=== PATIENT | female | born 1940 | race Caucasian/White ===

== ENCOUNTER 2016-12-20 14:34 | Inpatient (IN) | payer MEDICARE ==
[~2016-12-20] VITALS: Ht 147.3 cm; Wt 35.4 kg
[2016-12-20] MEDS: Piperacillin-Tazo 3.375 Gm Inj 3.375 GM in Dextrose 5% Minibag Plus 50 ML IV SCH ×3 (02:30→18:30)
[~2016-12-20 14:34] MED LIST: AMLO2.5T2 PO; ATEN25TA7 PO
[2016-12-20 16:30] VITALS: BP 147/81; PULSE 81; RESP 16; O2SAT 95
[2016-12-20] MEDS ORDERED: LEVO50TA6 PO (16:42)
[2016-12-20] MEDS ORDERED: MONT10TA23 PO (16:42)
[2016-12-20] MEDS ORDERED: AMLO10TA3 PO (16:42)
[2016-12-20] MEDS ORDERED: RED600CA2 PO (16:42)
[2016-12-20] MEDS ORDERED: ASPI-973 PO (16:42)
[2016-12-20] MEDS ORDERED: LOSA100T29 PO (16:42)
[2016-12-20] MEDS ORDERED: Ondansetron 2 mg/mL 2 mL Inj IVPUSH PRN (16:50)
[2016-12-20] MEDS ORDERED: Polyethylene Glycol (PEG) 17 Gm Powder PO PRN (16:50)
[2016-12-20] MEDS ORDERED: Alum-Mag Hydrox-Simeth 30 mL Suspension PO PRN (16:50)
--- NOTE | 2016-12-20 16:57 | PCM.HPMED ---
Subjective Date of Service Dec 20, 2016 Primary Provider: Admitting Physician: Shankar Escobar MD Primary Care Physician: Dominique Bartlett Attending Physician: Shankar Escobar MD Admit Status: Direct Admit, Full Admit, Admit to Blue Team Chief Complaint: Progressively worsening dyspnea/5 month Generalized weakness/5 months History of Present Illness: Natalie is a 76-year-old lady with past medical history of gastric ulcer, hypertension, history of CVA, hypothyroidism,HLD, cervical spinal stenosis, diagnosed with COPD 9 months ago was sent from PCP office for progressively worsening dyspnea for suspected pneumonia. Patient states she had dyspnea which started about a year ago. She saw Dr. rothman 9 months ago and was diagnosed with COPD with PFT and started on inhalers. Patient states she did not have any improvement on inhalers.of note she quit smoking 35 years ago. Used to smoke 1-2 packs for 15 years. She continued to have dyspnea but Symptoms were stable. Dyspnea spelled progressively worsen since spring. She was seen in July . CXR 11/15/16 with pneumonia but underlying mass cannot be ruled out. Treated with doxycycline Dyspnea continued to worsen and was seen in October and then Nov 28. She was treated with doxycycline. Prednisone offered for possible COPD exacerbation but the patient declined. She reports"negligible"improvement with doxycycline She returned to PCP/clinic on December 09. Started on prednisone 20 mg by mouth daily. Chest x-ray ordered CXR 12/17 No significant interval change. Stable right pleural effusion and mid and lower right lung pulmonary opacities. Given persistence of findings recommended a chest CT with contrast. CT chest: Moderate right upper and severe right lower lobe pneumonia. Moderate right parapneumonic effusion. Prominent supraclavicular, right hilar, and mediastinal adenopathy, worrisome for underlying malignant process. admission requested for pneumonia, failed outpatient treatment and workup of lung mass. She was also started on Levaquin po few days ago but no improvement she also reports she has dysphagia since having a stroke 2 and half years ago Denies fever. She has cough long-standing for many years but no recent change. lost 5 pounds recently unintentionally Review of Systems: Comprehensive review of systems performed, pertinent positives and negatives included in history of present illness Allergies Coded Allergies: aspirin (Verified Adverse Reaction, Severe, Abdominal Pain, 08/19/13) hx of GI bleed s/p aspirin use requiring 4 units PRBCs. Do Not Give per Dr. August. Serotonin (Verified Adverse Reaction, Mild, causes excessive somnolence, ) Home Medications Amlodipine 10 mg daily Aspirin 81 mg by mouth daily levothyroxine 50 mcg daily Losartan 100 mg by mouth daily Montelukast 10 mg by mouth daily PMH history of large gastric ulcer , hypertension, history of CVA requiring TPA hypothyroidism,HLD, cervical spinal stenosis, diagnosed with COPD 9 months ago Surgical History None Family History Reviewed and unremarkable. Social History Hx Alcohol Use: No Hx Substance Use: No Hx Tobacco Use: No Exam Vital Signs Vital Sign - Last Date Time Temp Pulse Resp B/P Pulse Ox O2 Delivery O2 Flow Rate FiO2 12/20/16 16:30 36.4 81 16 147/81 95 Room Air Exam Gen. Cachectic patient, no respiratory distress HEENT: Head is normocephalic atraumatic, Pupils equal and reactive, extraocular movements intact, Lungs decreased air entry the right lower chest Heart regular rate and rhythm without murmurs gallops or rubs Abdomen soft nontender without hepatosplenomegaly Extremities pulses are present dorsalis pedis posterior tibialis and radial. tSkin is warm and dry there are no rashes, Psych alert and oriented to person place and time Neuro cranial nerves II through XII are grossly intact Lymph: There is no lymphadenopathy appreciated in the cervical supra infraclavicular regions : no hill Lab and Diagnostics X-Rays, CTs and MRIs PROCEDURE: X-RAY CHEST, TWO VIEWS ([id number]) INDICATIONS: PNEUMONIA,CHRONIC OBSTRUCTIVE PULMONARY DISEASE TECHNIQUE: 2 views of the chest were acquired. COMPARISON: [facility], CR, XR CHEST 2VW, 11/15/2016, 9:01. FINDINGS: Surgical changes and devices: None. Lungs and pleura: Stable small right pleural effusion with interstitial pulmonary opacities throughout the right mid and lower lung. Left lung is clear. Hyperinflation consistent with emphysema. Mediastinum: Mediastinal contours are normal. Heart size is normal. Bones and chest wall: No suspicious bony abnormalities. Soft tissues appear unremarkable. IMPRESSION: No significant interval change. Stable right pleural effusion and mid and lower right lung pulmonary opacities. Given persistence of findings recommended a chest CT with contrast. Dictated by: Adam Anderson M.D. on 12/17/2016 at 12:10 PROCEDURE: CT CHEST WITH CONTRAST ([id number]) INDICATIONS: PLEURAL EFFUSION ON RIGHT TECHNIQUE: After the administration of intravenous contrast, 5 mm thick sections acquired from the pulmonary apices to the posterior costophrenic angles. 7 mm thick coronal and sagittal MIP reformats were acquired. For radiation dose reduction , the following was used: automated exposure control, adjustment of mA and/or kV according to patient size. 5 COMPARISON: None. FINDINGS: Image quality: Excellent. Lungs and pleura: A moderate right pleural effusion is present. No pneumothorax. Central and peripheral airways are patent and normal in caliber. There is severe airspace opacification within the right lower lobe, especially involving the superior segment. There is moderate airspace opacification within the right upper lobe. There is moderate emphysema with apical predominance. Mediastinum: Heart size is normal. No pericardial effusion. 20 mm short axis right paratracheal adenopathy is present. 27 mm short axis precarinal adenopathy is present. 14 mm short axis and 27 mm short axis right hilar adenopathy is present. 25 mm short axis subcarinal adenopathy is present. Thoracic aorta and central pulmonary arteries are normal in size. There is moderate fluid filled distention of the upper esophagus, measuring 30 mm transverse, which contains fluid, as well as a dependent high density focus measuring 7 mm. No hiatal hernia. Bones and chest wall: No suspicious bony lesions. No vertebral body compression fractures. No axillary adenopathy. Bilateral supra-clavicular adenopathy is present, measuring 14 mm short axis on the right, as well as 15 mm short axis and 10 mm short axis on the left.. Thyroid gland is within normal limits. Abdomen: Visualized portions of the upper abdomen demonstrate an incompletely visualized multiloculated low-density focus within the right/left hepatic lobe junction anteriorly measuring at least 26 mm. IMPRESSION: 1. Moderate right upper and severe right lower lobe pneumonia. Moderate right parapneumonic effusion. 2. Prominent supraclavicular, right hilar, and mediastinal adenopathy, worrisome for underlying malignant process. 3. Upper esophageal distention with retained intraluminal material, suggestive of an upper esophageal stricture. 4. Incompletely visualized right/left hepatic lobe junction abnormality, which could be further assessed with ultrasound initially, if clinically indicated. Dictated by: Vianey Parsons M.D. on 12/20/2016 at 11:20 Assessment & Plan Pat is a 76-year-old lady with past medical history of gastric ulcer, hypertension, history of CVA, hypothyroidism,HLD, cervical spinal stenosis, diagnosed with COPD 9 months ago was sent from PCP office for progressively worsening dyspnea for suspected pneumonia. # Suspected Postobstructive pneumonia, failed outpatient treatment. -Symptoms has been going on for months. Likely she has underlying malignancy with possible postobstructive pneumonia -cbc,cmp, blood culture,esr,procal requested -Empiric zosyn for now -called pulm consult Dr Tomas. May need bronchoscopy for microbiology and biopsy. May also need thoracentesis -duoneb qid -Aspiration pneumonia is also possible given dysphagia and abnormal CT esophagus # Suspected lung mass --called pulm consult Dr Tomas. May need bronchoscopy for microbiology and biopsy CT chest Moderate right upper and severe right lower lobe pneumonia. Moderate right parapneumonic effusion. Prominent supraclavicular, right hilar, and mediastinal adenopathy, worrisome for underlying malignant process. # Moderate pleural effusion,, chronic -May need diagnostic and therapeutic thoracentesis -echo ordred -pulm consulted # Dysphagia ,chronic -Upper esophageal distention with retained intraluminal material, suggestive of an upper esophageal stricture. -Barium swallow requested -npo for now -Swallow evaluation # History of COPD -duoneb prn -no need for steroid # Suspected severe protein energy malnutrition due to dysphagia and suspected lung cancer # History of CVA requiring TPA with residual dysphagia -Continue aspirin -swalow eval and barium swallow #History of large bleeding gastric ulcer -ppi ppx # History of hypertension -Continue home amlodipine # History of hypothyroidism -Continue on Synthroid # DNR/DNI,names her daughter as POA Patient admitted under inpatient status with expected length of stay > 2 midnights for severity of present symptoms, complexities of treatment plan and risk for adverse events Resuscitation Status: DNR/DNI:Do Not Resuscitate/Intubate copies to: Dominique Bartlett Melaku MD Dec 20, 2016 16:57
[2016-12-20 17:24] LABS: BASOPHILS % (AUTO) 0.8 % (0-3); EOSINOPHILS % (AUTO) 1.2 % (0-5); MONOCYTES % (AUTO) 12.9 % (4-12); Mean Corpuscular Hemoglobin 29.8 pg (27.0-35.0); Mean Corpuscular Volume 85.8 fL (81-100); NEUTROPHILS % (AUTO) 79.8 % (40-74); Platelet Count 350 bil/L (150-400)
[2016-12-20] MEDS ORDERED: Piperacillin-Tazo 3.375 Gm Inj 3.375 GM in Dextrose 5% Minibag Plus 50 ML IV ONE (17:30)
[2016-12-20] MEDS: 0.9% Sodium Chloride 1,000 ML IV SCH (17:34)
[2016-12-20 17:36] VITALS: PULSE 75
[2016-12-20 17:44] LABS: ERYTHROCYTE SEDIMENTATION RATE 22 mm/hr (0-40)
[2016-12-20 17:47] LABS: Magnesium 2.1 mg/dL (1.6-2.6)
[2016-12-20 17:58] LABS: TROPONIN T < 0.010 ug/L (0.0-0.011)
--- NOTE | 2016-12-20 18:03 | NUR ---
Admit Note/Direct Admit Patient walked in w/ daughter around 1700. Peripheral IV placed by IV therapy in left forearm, NS infusing @ 60ml/hr, Zosyn & K-samuel to be infused. Blood cultures x 2 & labs drawn. RA, c/o mild sob w/ activity, BP stable. No c/o pain. A & O x 3. Oriented to room, barium swallow & US guided thoracentesis w/ cytology ordered for tomorrow a.m., PT/INR ordered for a.m. labs. UA sent. EKG called/1V CXray to be performed tonight. Admit completed by admit RN. Patient comfortable. NPO status, ice chips only, HOB @ 30 degrees d/t esophageal stricture & food accumulation noted on chest CT.
[2016-12-20 18:24] LABS: APPEARANCE,URINE CLEAR (CLEAR,HAZY); COLOR,URINE YELLOW (YELLOW); OCCULT BLOOD,URINE NEGATIVE (NEGATIVE); UROBILINOGEN,URINE NORMAL (NORMAL)
--- NOTE | 2016-12-20 18:54 | DRSVH ---
PROCEDURE: X-RAY CHEST ONE VIEW ([id number]) INDICATIONS: pleural effUSion TECHNIQUE: One view of the chest was acquired. COMPARISON: [facility], CT, CT CHEST W CON, 12/20/2016, 9:15. [facility], CR , XR CHEST 2VW, 12/17/2016, 11:20. FINDINGS: Surgical changes and devices: None. Lungs and pleura: No pneumothorax. Small right pleural effusion. Moderate airspace opacity within th e right midlung and right lung base. Mediastinum: Mediastinal contours appear normal. Heart size is normal. Bones and chest wall: No suspicious bony lesions. Overlying soft tissues appear unremarkable. IMPRESSION: 1. No complication following thoracentesis. 2. No change in right pleural-parenchymal densities. Dictated by: Vianey Parsons M.D. on 12/20/2016 at 18:51 Approved by: Vianey Parsons M.D. on 12/20/2016 at 18:52
[2016-12-20 20:03] VITALS: BP 139/70; PULSE 67; RESP 16; O2SAT 94
[2016-12-20 21:38] VITALS: PULSE 70; RESP 18; O2SAT 94
[2016-12-20] MEDS: Albuterol-Ipratropium 3 mL Inhalation Solution NEB SCH (21:38)
[2016-12-21] VITALS (9 sets, daily range): BP systolic 123–157; BP diastolic 64–72; PULSE 69–84; RESP 16–20; O2SAT 93–95
--- NOTE | 2016-12-21 01:03 | NUR ---
NPO w Chips/Sips Pt remains NPO, given PM meds with sip of water and was tolerated well. K+ IV given for K of 3.4, IV zosyn per schedule and NS 60ml/h continues. Blood sugars checked Q6 due to NPO status. Pt rec'd first duoneb treatment this shift. No SOB or complaints of Chest pain. Care continues
[2016-12-21] MEDS: Piperacillin-Tazo 3.375 Gm Inj 3.375 GM in Dextrose 5% Minibag Plus 50 ML IV SCH ×2 (02:47→11:14)
[2016-12-21 06:55] LABS: BASOPHILS % (AUTO) 0.6 % (0-3); EOSINOPHILS % (AUTO) 5.7 % (0-5); MONOCYTES % (AUTO) 21.2 % (4-12); Mean Corpuscular Hemoglobin 29.4 pg (27.0-35.0); Mean Corpuscular Volume 87.2 fL (81-100); NEUTROPHILS % (AUTO) 63.4 % (40-74); Platelet Count 285 bil/L (150-400)
[2016-12-21 07:04] LABS: INR 0.96 ratio
[2016-12-21] MEDS: Albuterol-Ipratropium 3 mL Inhalation Solution NEB SCH (07:55)
[2016-12-21] MEDS: 0.9% Sodium Chloride 1,000 ML IV SCH (11:14)
--- NOTE | 2016-12-21 12:01 | CONS ---
[address] [address] CONSULTATION REPORT PATIENT: LUCINA MEJÍA : 1940 MR#: [id number] ADMIT: 12/20/2016 JOB ID: [id number] DATE OF SERVICE: 12/21/2016 GASTROENTEROLOGY CONSULTATION: REASON FOR CONSULTATION: Dysphagia. HISTORY OF PRESENT ILLNESS: An 76-year-old female. History of gastric ulcer, hypertension, stroke two years ago, hypothyroidism, hyperlipidemia, cervical spinal stenosis, COPD. Presents for consultation for dysphagia. The patient was admitted to the hospital December 20, 2016 for shortness of breath. CT of the chest on December 20, 2016 showed a moderate right upper in severe right lower lobe pneumonia and moderate right parapneumonic effusion. It also showed prominent subclavicular, right hilar, and mediastinal adenopathy, and upper esophagus dilatation, with retention of intraluminal material suggestive of an upper esophageal stricture. The patient states that she does have dysphagia since her stroke two years ago to solids only, but not to liquids. The patient denies odynophagia or history of asthma. The patient on October 01, 2006, underwent an upper endoscopy showing a large 2 cm gastric ulcer with necrotic base without active bleeding and small erosions in the cardia without active bleeding. The patient is unknown whether she had a colonoscopy in the past. Denies family history of colon cancer, inflammatory bowel disease, or celiac disease. The patient denies rectal bleeding, nausea, vomiting, hematemesis, abdominal pain, change in bowel habits, or unintentional weight loss. PAST MEDICAL HISTORY: As stated above. PAST SURGERIES: None. ALLERGIES: ASPIRIN, . HOME MEDICATIONS: Amlodipine, aspirin, Synthroid, losartan, montelukast. SOCIAL HISTORY: No alcohol, smoking, or drugs. FAMILY HISTORY: Negative for colon cancer, IBD, or celiac disease. REVIEW OF SYSTEMS: The patient denies headache, blurred vision, nausea, vomiting, chest pain. Positive for shortness of breath. No abdominal pain, skin rash, or joint pain. PHYSICAL EXAMINATION: Vital signs upon presentation: Temperature is 36.6, pulse 71, respiratory rate 18, blood pressure 136/71, satting 94% room air. General: In no acute distress. Head: No scars. Eyes: Anicteric. Throat: Supple. Lungs: Decreased breath sounds on the right side. Cardiovascular: Regular rhythm and rate. Abdomen: Soft, nondistended, nontender. Normal bowel sounds. Extremities: Without any cyanosis, clubbing, or edema. LABORATORY AND DIAGNOSTIC STUDIES: Labs show a white count 6.3, hemoglobin 12.2, hematocrit 36, platelet count of 285. Sodium 138, potassium 2.6, chloride 103, bicarb 20, BUN 5, creatinine 0.49, glucose 86. Hemoglobin A1c 5.4. Calcium 8.3, magnesium 2.1. Total bili 0.5, AST 18, ALT 16, alk phos 76. Troponin is negative. Albumin 3.9, total protein 7.3. PT 10.6, INR 0.96. Chest x-ray done on December 20, 2016 showing no complications following thoracentesis. No change in the right pleural parenchymal densities. ASSESSMENT AND PLAN: A 76-year-old female. History of gastric ulcer, large hiatal hernia, hypertension, stroke, hypothyroidism, hyperlipidemia, cervical spine stenosis, chronic obstructive pulmonary disease (COPD). Admitted with shortness of breath with a right-sided pneumonia and right-sided parapneumonic effusion. The patient was found to have a CT chest showing possible upper esophageal stenosis and dilatation of the esophagus. Differential diagnosis includes malignancy versus esophagitis, versus Schatzki's ring, versus stricture, versus uncontrolled gastroesophageal reflux disease (GERD). Given the CT of the chest findings concerning that this may be due to an esophageal stricture or possible malignancy. RECOMMENDATIONS: 1. NPO except for medications. 2. EGD with anesthesia scheduled for tomorrow.
[2016-12-21] MEDS ORDERED: Albuterol-Ipratropium 3 mL Inhalation Solution NEB PRN (12:10)
--- NOTE | 2016-12-21 12:27 | NUR ---
Social Work-initial assessment/multidisciplinary rounds: Data:See initial assessment. Pt is a 76 y/o female who was admitted on 12/20/16 for pneumonia per H&P. Pt's insurance is [facility] and PCP is OSMAR Jordan. EMR Reviewed. Pt's readmission score is 1. SW met with pt at bedside, SW role explained. Pt is alert and oriented x3. Pt resides at home alone in [place] where she remains independent with ADLS. Pt does not use any DME and drives. Pt has no HH or SNF history. Pt has no halfway care insurance or VA benefits. SW discussed DPOA/ advanced directive, pt confirms she has completed this, SW encouraged a copy to be brought in. No concerns noted in morning rounds regarding pt's capacity for self care, per RN or MD. Pt has been up independent in her room. Pt's daughter to provide transport home. SW provided pt with discharge planning checklist and encouraged pt to call with any questions, phone number provided. No anticipated discharge needs. SW will continue to follow if needs arise. Assessment:Pt who is independent at baseline. Plan:Pt to discharge home when medically stable via POV. No anticipated discharge needs. SW will continue to follow if needs arise. SCOTT العلي Addendum: 12/21/16 at 1229 by NILSA DUARTE SS Amended: Links added.
--- NOTE | 2016-12-21 15:59 | PCM.PNMED ---
Subjective Date of Service Dec 21, 2016 Subjective no overnight event. pt still some dysphagia with solid food, unchanged for 2yrs. refused MBBS due to fear of esophageal tear. agreed on possible EGD, and throracentesis after reviewing CT scan together pt denied dyspnea this AM at rest but still has EDWARDS, chronic dry cough, spoke to . scheduled for EGD possibly tomorrow morning. Exam Vital Signs Vital Sign - Last Date Time Temp Pulse Resp B/P Pulse Ox O2 Delivery O2 Flow Rate FiO2 12/21/16 08:31 36.6 71 18 136/71 94 Room Air Intake and Output 12/20/16 12/20/16 12/21/16 Cumulative From/Thru 15:00 23:00 07:00 12/20/16 16:30 - 12/21/16 06:22 Intake Total 0 ml 1572 ml 1572 ml Output Total 200 ml 450 ml 650 ml Balance -200 ml 1122 ml 922 ml Intake Oral 0 ml 650 ml 650 ml IV Total 922 ml 922 ml Output Urine Total 200 ml 450 ml 650 ml # Bowel Movements 0 0 Exam cachectic, AAOX3 NAD, comfortably laying down on the bed no JVD, MMM, no LAD RRR, nl s1, s2 no mrg decreased BS on RLF, mild crackles, S,ND,NT,BS+ warm, no edema, pulses 2/2 IVs and Medications Medications Reviewed: Medications were reviewed in detail Lab and Diagnostics Result Diagram: 12/21/1661412/21/1615 X-Rays, CTs and MRIs PROCEDURE: X-RAY CHEST, TWO VIEWS ([id number]) INDICATIONS: PNEUMONIA,CHRONIC OBSTRUCTIVE PULMONARY DISEASE TECHNIQUE: 2 views of the chest were acquired. COMPARISON: [facility], CR, XR CHEST 2VW, 11/15/2016, 9:01. FINDINGS: Surgical changes and devices: None. Lungs and pleura: Stable small right pleural effusion with interstitial pulmonary opacities throughout the right mid and lower lung. Left lung is clear. Hyperinflation consistent with emphysema. Mediastinum: Mediastinal contours are normal. Heart size is normal. Bones and chest wall: No suspicious bony abnormalities. Soft tissues appear unremarkable. IMPRESSION: No significant interval change. Stable right pleural effusion and mid and lower right lung pulmonary opacities. Given persistence of findings recommended a chest CT with contrast. Dictated by: Adam Anderson M.D. on 12/17/2016 at 12:10 PROCEDURE: CT CHEST WITH CONTRAST ([id number]) INDICATIONS: PLEURAL EFFUSION ON RIGHT TECHNIQUE: After the administration of intravenous contrast, 5 mm thick sections acquired from the pulmonary apices to the posterior costophrenic angles. 7 mm thick coronal and sagittal MIP reformats were acquired. For radiation dose reduction , the following was used: automated exposure control, adjustment of mA and/or kV according to patient size. 5 COMPARISON: None. FINDINGS: Image quality: Excellent. Lungs and pleura: A moderate right pleural effusion is present. No pneumothorax. Central and peripheral airways are patent and normal in caliber. There is severe airspace opacification within the right lower lobe, especially involving the superior segment. There is moderate airspace opacification within the right upper lobe. There is moderate emphysema with apical predominance. Mediastinum: Heart size is normal. No pericardial effusion. 20 mm short axis right paratracheal adenopathy is present. 27 mm short axis precarinal adenopathy is present. 14 mm short axis and 27 mm short axis right hilar adenopathy is present. 25 mm short axis subcarinal adenopathy is present. Thoracic aorta and central pulmonary arteries are normal in size. There is moderate fluid filled distention of the upper esophagus, measuring 30 mm transverse, which contains fluid, as well as a dependent high density focus measuring 7 mm. No hiatal hernia. Bones and chest wall: No suspicious bony lesions. No vertebral body compression fractures. No axillary adenopathy. Bilateral supra-clavicular adenopathy is present, measuring 14 mm short axis on the right, as well as 15 mm short axis and 10 mm short axis on the left.. Thyroid gland is within normal limits. Abdomen: Visualized portions of the upper abdomen demonstrate an incompletely visualized multiloculated low-density focus within the right/left hepatic lobe junction anteriorly measuring at least 26 mm. IMPRESSION: 1. Moderate right upper and severe right lower lobe pneumonia. Moderate right parapneumonic effusion. 2. Prominent supraclavicular, right hilar, and mediastinal adenopathy, worrisome for underlying malignant process. 3. Upper esophageal distention with retained intraluminal material, suggestive of an upper esophageal stricture. 4. Incompletely visualized right/left hepatic lobe junction abnormality, which could be further assessed with ultrasound initially, if clinically indicated. Dictated by: Vianey Parsons M.D. on 12/20/2016 at 11:20 Assessment & Plan Pat is a 76-year-old lady with past medical history of gastric ulcer, hypertension, history of CVA, hypothyroidism,HLD, cervical spinal stenosis, diagnosed with COPD 9 months ago was sent from PCP office for progressively worsening dyspnea for suspected pneumonia. acute, active progressive worsening dyspnea, POA, possibly related to worsening Rt sided effusion, probable PNA. pt was initially suspected PNA given failure of outpatient abx. tx for COPD. however, pt remained afebrile, PCT very unremarkable. pt only has chronic dry cough. -will stop zosyn and monitor respiratory status closely. -O2 supplement as needed target>95%, good O2sat today on -appreciate input on Friday, as per . -TTE pending, although unlikely this is cardiac origin. Rt sided pleural effusion, multiple LAD on CT, concerning for malignancy, POA, pt had poor FU with , refused thoracentesis this AM, then again agreed on procedure. -will get diagnostic/therapeutic thoracentesis today, Cell w/ diff, culture/ gram stain, LDH, prot, glc, cytology -pulmonary FU chronic dysphagia, POA, previous gastric ulcer in EGD, CT showed upper esophageal distention with retained intraluminal material, suggestive of an upper esophageal stricture, dx malignancy, GERD, schatzki ring. -appreciate consult -scheduled for EGD tomorrow morning chronic, stable # History of COPD, duoneb prn # Suspected severe protein kaloric malnutrition due to dysphagia and suspected lung cancer # History of CVA requiring TPA with possible residual dysphagia, continue aspirin, #History of large bleeding gastric ulcer, continue PPI # History of hypertension, Continue home amlodipine # History of hypothyroidism, Continue on Synthroid DNR/DNI,names her daughter as POA dispo: likely 1-2more days home Resuscitation Status: DNR/DNI:Do Not Resuscitate/Intubate Time spent 35min Al Cantrell MD Dec 21, 2016 11:00
--- NOTE | 2016-12-21 17:30 | NUR ---
Off the unit Pt taken off the unit for completion of thoracentesis. VSS. no complains of pain or SOB, pt has been NPO all day, with sips and chips. Tele removed and IV saline locked. Addendum: 12/21/16 at 1849 by TRAY OSHEA RN Pt returned to [facility], following completion of thoracentesis and chest x-ray. 210 mls of dexter fluid were removed. Pt tolerated well. Pt eating dinner. Call light in reach, will continue to monitor.
--- NOTE | 2016-12-21 18:46 | DRSVH ---
PROCEDURE: X-RAY CHEST ONE VIEW ([id number]) INDICATIONS: 76 year-old female status post ultrasound guided right thoracentesis. TECHNIQUE: One view of the chest was acquired. COMPARISON: [facility], CR, XR CHEST 1VW, 12/20/2016, 18:10. [facility], CR, XR CHEST 2VW, 12/17/2016, 11:20. [facility], CR, XR CHEST 2VW, 11/15/2016, 9:01. FINDINGS: Surgical changes and devices: None. Lungs and pleura: Small basal right pleural effusion has slightly decreased. No pneumothorax. There i s persistent right midlung airspace opacity. Left lung is clear. Mediastinum: Mediastinal contours appear normal. Heart size is normal. Bones and chest wall: No suspicious bony lesions. Overlying soft tissues appear unremarkable. IMPRESSION: 1. Small right basal pleural effusion has slightly decreased status post thoracentesis. No pneumothor ax. 2. Persistent right midlung pneumonia. Dictated by: Amari Kidd M.D. on 12/21/2016 at 18:42 Approved by: Amari Kidd M.D. on 12/21/2016 at 18:44
--- NOTE | 2016-12-21 19:16 | DRSVH ---
PROCEDURE: US GUIDED THORACENTESIS BY REFERRING PHYSICIAN ([id number]) INDICATIONS: 76 year-old female with basal right pleural effusion. TECHNIQUE: The indications, alternatives, benefits, risks, and complications of the procedure were explained to the patient. Written informed consent was obtained and placed in the chart. The chest was examined sonographically, and an appropriate site was chosen for thoracentesis. The skin was prepared and madeleine ped in the usual sterile fashion, and 1% lidocaine was infiltrated from the skin down through the ple ural surface. A 19-gauge catheter-covered needle was then introduced into the pleural space, the cat heter was advanced and the needle was withdrawn, and thereafter pleural fluid was aspirated. The cat heter was then removed and a dressing was applied. COMPARISON: [facility], CR, XR CHEST 1VW, 12/20/2016, 18:10. [facility], CT, CT CHEST W CON, 12/20/2016, 9:15. FINDINGS: Access site: Posterior right hemithorax. Needle: One-Step centesis catheter with introducer needle. Fluid volume and description: 150 mL of clear yellow fluid. Fluid sent for diagnostic testing: As ordered by referring provider. Medications: 1% lidocaine for local anaesthesia. Complications: None; post-procedural chest radiograph is pending to assess for pneumothorax. IMPRESSION: Successful ultrasound-guided diagnostic thoracentesis. Dictated by: Amari Kidd M.D. on 12/21/2016 at 19:14 Approved by: Amari Kidd M.D. on 12/21/2016 at 19:15
[2016-12-21 23:32] LABS: MONOCYTES,BODY FLUID 18 %; OTHER CELLS,BODY FLUID 1
[2016-12-21 23:34] LABS: BFWBC 1140 /mm3
[2016-12-21 23:41] LABS: BFWBC 1183 /mm3; MONOCYTES,BODY FLUID 20 %
[2016-12-21 23:42] LABS: OTHER CELLS,BODY FLUID 8
[2016-12-22] VITALS (13 sets, daily range): BP systolic 103–164; BP diastolic 48–76; PULSE 69–93; RESP 12–20; O2SAT 92–97
--- NOTE | 2016-12-22 05:31 | NUR ---
NOC/9 beats V-tach Pt had an episode of 9 beats of V-tach but is asymptomatic. MD Dr. Tatum notified and is aware. Pt's VSS and has been afebrile overnight. Denies chest pain, sob, n/v or abd discomfort. HS meds administered as scheduled. Hourly rounding done and pt has slept most of the night.
[2016-12-22] MEDS: 0.9% Sodium Chloride 1,000 ML IV SCH ×2 (06:00→17:07)
--- NOTE | 2016-12-22 10:07 | DRSVH ---
PROCEDURE: CT CHEST WITHOUT CONTRAST ([id number]) INDICATIONS: FU chest ct post thracetensis r/o mass TECHNIQUE: Noncontrast 5 mm thick sections acquired from the pulmonary apices to the posterior costophrenic angl es. 7 mm thick coronal and sagittal MIP reformats were then acquired. For radiation dose reduction, the following was used: automated exposure control, adjustment of mA and/or kV according to patient size. COMPARISON: [facility], CR, XR CHEST 1VW, 12/21/2016, 18:39. [facility], US, US GUIDED THORACENTESIS, 12/21/2016, 17:49. [facility], CR, XR CHEST 1VW, 12/20/2016, 18: 10. FINDINGS: Image quality: Moderate, no contrast used.. Lungs and pleura: In the right upper lobe and to a lesser degree in the right lower lobe and middle lobe there is increased interstitial markings and the appearance would suggest lymphangitic obstructi on or spread of disease. There is slight loss of diameter of the bronchus intermedius. There is loss of diameter of the bronchi going to the right lower lobes and to the right upper lobe. Mediastinum: Heart size is normal. No pericardial effusion. There is prominent adenopathy in the pr etracheal retrocaval space, aortopulmonary window, subcarinal area and in the right hilum there is an abnormal amount of soft tissue as well. Without contrast to discriminate vessels from other soft tis leif or location of the mass cannot be identified. Thoracic aorta and central pulmonary arteries are n ormal in size. Esophagus is normal in caliber. No hiatal hernia. Bones and chest wall: No suspicious bony lesions. No vertebral body compression fractures. No axil delma or supraclavicular adenopathy by size criteria. Abdomen: Visualized upper abdominal solid organs and bowel loops appear normal in the absence of con trast. There is a multiloculated cystic structure in right lobe of the liver. There is left-sided mil d hydronephrosis to be present. IMPRESSION: Malignancy is present as noted by mediastinal adenopathy and right hilar soft tissue prominence. Spe cific mass cannot be distinguished without the use of contrast to discriminate between lymph nodes an d vessels and mass as well as collapsed lung. Prominent increased interstitial markings probably lymphangitic in the upper lobe and perihilar regio n in the right lobe and middle lobe of the right lung. Small right pleural effusion remains. Dictated by: Reece Radford M.D. on 12/22/2016 at 9:54 Approved by: Reece Radford M.D. on 12/22/2016 at 10:06
[2016-12-22] MEDS ORDERED: MetoCLOpramide 5 mg/mL 2 mL Inj IVPUSH PRN ×2 (10:35→11:10)
[2016-12-22] MEDS ORDERED: Ondansetron 2 mg/mL 2 mL Inj IVPUSH PRN ×2 (10:35→11:10)
--- NOTE | 2016-12-22 10:46 | PCM.HPANE ---
Patient Data Surgeon Admitting Provider:Shankar Escobar MD Attending Provider:Al Cantrell MD Primary Care Physician:Dominique Bartlett Other Provider: Reason for Visit Pneumonia Ht/WT & BMI Height (Feet): 4 Height (Inches): 10.00 Weight (Kilograms): 35.400 Body Mass Index 16.38 Allergies Coded Allergies: aspirin (Verified Adverse Reaction, Severe, Abdominal Pain, 12/20/16) hx of GI bleed s/p aspirin use requiring 4 units PRBCs. Do Not Give per Dr. August. PER PATIENT 81 MG OK TO TAKE SHE TAKES AT HOME DAILY Serotonin (Verified Adverse Reaction, Mild, causes excessive somnolence, ) Past Anesthesia History Anesthesia History: Denies:: Anesthesia Reactions Diabetes History Hx Diabetes?: No Current Bedside Blood Glucose: 93 MRSA MRSA: No Medications Reported Medications Red Yeast Rice 600 Mg [id number] Mg PO BID 12/20/16 Montelukast 10 Mg [id number] Mg PO HS 12/20/16 Losartan Potassium 100 Mg [id number] Mg PO QPM 12/20/16 Levothyroxine 50 Mcg [id number] Mcg PO DAILY 12/20/16 Aspirin 81 Mg Iolcap59 Mg PO DAILY 12/20/16 Amlodipine 10 Mg [id number] Mg PO QPM 12/20/16 Discontinued Reported Medications AmLODIPine-Expunged Drug, Do Not Renew! 2.5 Mg Tablet5 Mg PO DAILY 10/02/10 Atenolol-Expunged Drug, Do Not Renew! 25 Mg [id number] Mg PO DAILY 10/02/10 History History of ENT Problems?: No HEENT History: Positive for:: Cataracts Dysphagia Denies:: Sinus Problem Denture Type: Full- Upper Full- Lower Teeth Condition: Missing Teeth Hx of Heart Problems?: Yes Cardiovascular History: Positive for:: Heart Murmur Hypertension Denies:: Cardiac Surgery Chest Pain Congestive Heart Failure Edema Irregular Heartbeat Pacemaker Thrombophlebitis Hx of Respiratory Problem?: Yes Respiratory History: Positive for:: Asthma COPD Pneumonia Denies:: Chest Surgery Emphysema Hemoptysis Tuberculosis Other History/Comment Breathing alright today. Not much pulm reserve. S/p thoracentesis Hx Neurologic Problems?: No Neurological History: Positive for:: CVA Headaches Denies:: Alzheimer's Disease Dementia Dizziness Parkinson's Disease Seizures Hx of GI Problems?: Yes Hx of Problems?: No Genitourinary History: Denies:: HX of Hemodialysis Kidney Stones Urinary Tract Infection HX of Peritoneal Dialysis: No Female Hx: Denies:: Currently Endometriosis Pelvic Inflammatory Problems with Breasts? Hx Musculoskeletal Problems?: Yes Musculoskeletal History: Positive for:: Back Injury (spinal stenosis) Denies:: Joint Replacement Musculoskeletal Trauma Hx of Psycho/Social Problems?: No Psycho Social History: Positive for:: Hx Depression (distant past) Denies:: Anxiety Bipolar Disorder Suicide Attempt Hx Surgeries?: No Hx Any Other Health Problems?: No Other History: Positive for:: Endocrine Disease Thyroid Disease (hypothyroid) Denies:: Cancer Hospitalization History Blood Transfusions: Positive for:: Accept Blood Products? Denies:: Blood Transfuse Reaction Blood Transfusions Hx Diabetes: NoBedside Blood Glucose: 93 Hx Alcohol Use: NoHx Substance Use: NoHave You Smoked inLast 12 mo: No Stop/Bang Treated for Sleep Apnea?: No Do You Have a CPAP Machine?: No S-Snoring: Do You Snore Loudly: No T-Tired: feel tired, fatigued: No O-Obsered: Observed not breath: No P-Blood Pressure: treated: Yes B- Body Mass Index > 35 kg/m2: No A- Age over 50: Yes N- Neck Large Circumference: No G- Gender Male: No LUCINA Total Score: 1 Risk Assessment Category Category 1A: Patient has history of documented sleep apnea, and HAS NOT received any narcotic, sedative or anesthesia administration during this stay. Category 1B: Patient has history of documented sleep apnea, and HAS received any narcotic , sedative or anesthesia administration during this stay Category 2: Patient has SUSPECTED Obstructive Sleep Apnea, and HAS received any narcotic , sedative or anesthesia administration during this stay. Category 3: Patient has SUSPECTED Obstructive Sleep Apnea and HAS NOT received narcotic, sedative or anesthesia administration during this stay. Category 4: Outpatient in Procedural Areas with known sleep apnea or who screen positive for High Risk via the STOP/BANG questionnaire. Exam Exam Vital Signs Vital Signs Date Time Temp Pulse Resp B/P Pulse Ox O2 Delivery O2 Flow Rate FiO2 12/22/16 08:30 69 18 93 Room Air 12/22/16 08:01 36.8 69 16 125/69 93 Room Air 12/22/16 08:00 72 12/22/16 06:07 93 General Appearance: Alert, Oriented X3 HEENT/AIRWAY: MP 2, Neck Movement (FROM) Lungs: Clear to Auscultation, Clear to Percussion Heart: Exam Unremarkable, Regular Rate/Rhythm Meds/Labs/Diagnostics Bedside Blood Glucose: 93 Labs Test 12/20/16 17:10 12/20/16 17:20 12/20/16 17:38 12/21/16 06:15 Erythrocyte Sedimentation Rate 22mm/hr (0-40) Hemoglobin A1c 5.4% (4.8-5.6) Magnesium Level 2.1mg/dL (1.6-2.6) Total Bilirubin 0.5mg/dL (0.0-1.2) Aspartate Amino Transf (AST/SGOT) 18U/L (0-50) Alanine Aminotransferase (ALT/SGPT) 16U/L (0-32) Alkaline Phosphatase 76U/L (25-165) Troponin T < 0.010ug/L (0.0-0.011) Pro-B-Type Natriuretic Peptide 135.1pg/mL (0-738) Total Protein 7.3g/dL (6.4-8.4) Albumin 3.9g/dL (3.4-5.0) Procalcitonin 0.04ng/mL (0.00-0.08) Hold Gacria Top Tube Received (Received) Urine Color Yellow (YELLOW) Urine Appearance Clear (CLEAR,HAZY) Urine pH 5.0 (5.0-8.0) Urine Specific [place] 1.005 (1.003-1.035) Urine Protein Negativemg/dL (NEG,TRACE) Urine Glucose (UA) Negativemg/dL (NEGATIVE) Urine Ketones Tracemg/dL (NEGATIVE) Urine Occult Blood Negative (NEGATIVE) Urine Nitrite Negative (NEGATIVE) Urine Bilirubin Negative (NEGATIVE) Urine Urobilinogen Normalmg/dL (NORMAL) Urine Leukocyte Esterase Negative (NEGATIVE) Urine RBC 0-2/hpf (0-2) Urine WBC 0-5/hpf (0-5) Urine Epithelial Cells None/hpf (NONE-MOD) Urine Crystals None seen (NONE SEEN) Urine Bacteria None/hpf (NONE-FEW) Urine Hyaline Casts None/lpf (NONE) Urine Granular Casts None seen (NONE SEEN) Urine Waxy Casts None seen (NONE SEEN) Urine Red Blood Cell Casts None seen (NONE SEEN) Urine White Blood Cell Casts None seen (NONE SEEN) Urine Mucus None seen (None Seen) Urine Trichomonas None seen (NONE SEEN) Urine Yeast None (NONE SEEN) Urinalysis Comment None Urine Culture Reflexed Not indicated White Blood Count 6.3th/mm3 (3.8-10.1) Red Blood Count 4.15mil/mm3 (3.90-5.20) Hemoglobin 12.2g/dL (12.0-15.6) Hematocrit 36.2% (35.0-46.0) Mean Corpuscular Volume 87.2fL (81-100) Mean Corpuscular Hemoglobin 29.4pg (27.0-35.0) Mean Corpuscular Hemoglobin Concent 33.7% (32.0-37.0) Red Cell Distribution Width 12.2% (12.3-15.4) Platelet Count 285bil/L (150-400) Neutrophils (%) (Auto) 63.4% (40-74) Lymphocytes (%) (Auto) 8.9% (14-46) Monocytes (%) (Auto) 21.2% (4-12) Eosinophils (%) (Auto) 5.7% (0-5) Basophils (%) (Auto) 0.6% (0-3) Prothrombin Time 10.3sec (8.1-12.5) Prothromb Time International Ratio 0.96ratio Activated Partial Thromboplast Time 29.5sec (22.8-33.0) Sodium Level 138mEq/L (134-144) Potassium Level 3.6mEq/L (3.5-5.2) Chloride Level 103mEq/L (97-108) Carbon Dioxide Level 20mmol/L (18-29) Blood Urea Nitrogen 5mg/dL (8-27) Creatinine 0.49mg/dL (0.57-1.00) Estimat Glomerular Filtration Rate 175mL/min (>59) Glucose Level 86mg/dL (60-99) Calcium Level 8.3mg/dL (8.5-10.1) Test 12/21/16 21:00 12/22/16 07:42 Body Fluid Source Pleural fluid Body Fluid Color Straw (Clear) Body Fluid Appearance Clear Body Fluid WBC 1140/mm3 Body Fluid RBC 1000/mm3 Body Fluid Polynuclear WBCs 7% Body Fluid Lymphocytes 74% Body Fluid Monocytes 18% Body Fluid Eosinophils 0% Body Fluid Basophils 0% Body Fluid Total Protein 4.0g/dL Pleural Fluid Glucose 90mg/dL Lactate Dehydrogenase 146U/L (100-190) Plan Impression Patient chart reviewed, patient interviewed and anesthestic plan with risks, benefits, and alternatives discussed, and informed consent obtained. ASA Physical Status: ASA3 Severe Disease (PNA; COPD) Anesthetic Plan: MAC Bene/Risks/Altern/Consents: No HP Complete Prior to Induction: No Reece Magallon MD Dec 22, 2016 10:33
[2016-12-22] MEDS: Lactated Ringer's 1,000 ML IV SCH ×2 (10:59→12:07)
[2016-12-22] MEDS ORDERED: Lactated Ringer's 1,000 ML IV SCH (11:08)
--- NOTE | 2016-12-22 11:09 | PCM.ANEP1 ---
Post Anesthesia PACU Phase 1 Assessment Vital Signs Vital Signs Date Time Temp Pulse Resp B/P Pulse Ox O2 Delivery O2 Flow Rate FiO2 12/22/16 10:42 90 20 164/73 97 Room Air 12/22/16 08:30 69 18 93 Room Air 12/22/16 08:01 36.8 69 16 125/69 93 Room Air 12/22/16 08:00 72 12/22/16 06:07 93 Anesthetic Administered: MAC Level of Alertness: Awake, talking FITZGERALD's with Equal Strength: Yes Pain: No Nausea or Vomiting: No CV Function & Hydration Stable: Yes Airway Device: Oxygen Delivery: Nasal Cannula Lungs: Clear to Auscultation, Clear to Percussion PACU Phase 2 Assessment Complications: No Follow up Care: No Patient Instructions Provided: N/A Comments See anesth record for PACU VS. PACU VSS Reece Magallon MD Dec 22, 2016 11:09
--- NOTE | 2016-12-22 13:49 | ENDO ---
[address] [address] ENDOSCOPY PROCEDURE PATIENT: LUCINA MEJÍA : 1940 MR#: [id number] ADMIT: 12/20/2016 JOB ID: [id number] DATE OF SERVICE: 12/22/2016 TYPE OF OPERATION: Esophagogastroduodenoscopy with biopsy. PREOPERATIVE DIAGNOSIS(ES): Dysphagia. 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 ANESTHESIA: Monitored anesthesia care. COMPLICATIONS: None. BLOOD LOSS: Minimal. DESCRIPTION OF PROCEDURE: After risks and benefits explained to the patient, informed consent was obtained. After anesthesia administered, an upper endoscope was then inserted into mouth, intubated into the esophagus, stomach, second portion of duodenum. Mucosa carefully examined. After the procedure was done, scope withdrawn, procedure terminated. FINDINGS: Right prior to the intubation, in the esophagus, there appears to be a blind pouch or a diverticulum that was seen. Afterwards, after the intubation, esophagus appeared normal without masses, ulcers, or lesions. Z-line located at 40 cm from incisors. Upon entering stomach, stomach also was normal without masses, ulcers, lesion. Retroflexion normal. Duodenal bulb, 1st and 2nd portion were normal. Biopsies taken in the distal esophagus. 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 Otherwise normal upper endoscopy. RECOMMENDATION: Await pathology results. Okay to start clear liquid diet. Advance as tolerated. [facility]
--- NOTE | 2016-12-22 15:00 | NUR ---
EDG/CT Patient had CT of chest w/o contrast to day showed suspected mediastinal malignancy, EDG showed blind pouch at start but otherwise normal esophagus. Biopsy taken, patient resumed on heart healthy vegetarian diet, denies pain, shortness of breath and nausea. Patient has slight no productive cough, has lost weight over last 3 months, and plan is to have pulmonary consult Friday.
--- NOTE | 2016-12-22 16:07 | PCM.PNMED ---
Subjective Date of Service Dec 22, 2016 Subjective pt tolerated thracentesis, EGD well, which didn't reveal much. denied SOB, thinks her breathing mildly improved after thoracentesis. Exam Vital Signs Vital Sign - Last Date Time Temp Pulse Resp B/P Pulse Ox O2 Delivery O2 Flow Rate FiO2 12/22/16 12:54 36.4 73 16 154/76 93 Room Air 12/22/16 11:06 4 Intake and Output 12/21/16 12/21/16 12/22/16 Cumulative From/Thru 15:00 23:00 07:00 12/20/16 16:30 - 12/22/16 06:26 Intake Total 0 ml 733 ml 2305 ml Output Total 925 ml 450 ml 2025 ml Balance -925 ml 283 ml 280 ml Intake Oral 0 ml 200 ml 850 ml IV Total 533 ml 1455 ml Output Urine Total 925 ml 450 ml 2025 ml # Bowel Movements 0 0 Exam achectic, AAOX3 NAD, comfortably laying down on the bed no JVD, MMM, no LAD RRR, nl s1, s2 no mrg decreased BS on RLF, mild crackles, S,ND,NT,BS+ warm, no edema, pulses 2/2 IVs and Medications Medications Reviewed: Medications were reviewed in detail Lab and Diagnostics Result Diagram: 12/21/1661412/21/16614 X-Rays, CTs and MRIs PROCEDURE: X-RAY CHEST, TWO VIEWS ([id number]) INDICATIONS: PNEUMONIA,CHRONIC OBSTRUCTIVE PULMONARY DISEASE TECHNIQUE: 2 views of the chest were acquired. COMPARISON: [facility], CR, XR CHEST 2VW, 11/15/2016, 9:01. FINDINGS: Surgical changes and devices: None. Lungs and pleura: Stable small right pleural effusion with interstitial pulmonary opacities throughout the right mid and lower lung. Left lung is clear. Hyperinflation consistent with emphysema. Mediastinum: Mediastinal contours are normal. Heart size is normal. Bones and chest wall: No suspicious bony abnormalities. Soft tissues appear unremarkable. IMPRESSION: No significant interval change. Stable right pleural effusion and mid and lower right lung pulmonary opacities. Given persistence of findings recommended a chest CT with contrast. Dictated by: Adam Anderson M.D. on 12/17/2016 at 12:10 PROCEDURE: CT CHEST WITH CONTRAST ([id number]) INDICATIONS: PLEURAL EFFUSION ON RIGHT TECHNIQUE: After the administration of intravenous contrast, 5 mm thick sections acquired from the pulmonary apices to the posterior costophrenic angles. 7 mm thick coronal and sagittal MIP reformats were acquired. For radiation dose reduction , the following was used: automated exposure control, adjustment of mA and/or kV according to patient size. 5 COMPARISON: None. FINDINGS: Image quality: Excellent. Lungs and pleura: A moderate right pleural effusion is present. No pneumothorax. Central and peripheral airways are patent and normal in caliber. There is severe airspace opacification within the right lower lobe, especially involving the superior segment. There is moderate airspace opacification within the right upper lobe. There is moderate emphysema with apical predominance. Mediastinum: Heart size is normal. No pericardial effusion. 20 mm short axis right paratracheal adenopathy is present. 27 mm short axis precarinal adenopathy is present. 14 mm short axis and 27 mm short axis right hilar adenopathy is present. 25 mm short axis subcarinal adenopathy is present. Thoracic aorta and central pulmonary arteries are normal in size. There is moderate fluid filled distention of the upper esophagus, measuring 30 mm transverse, which contains fluid, as well as a dependent high density focus measuring 7 mm. No hiatal hernia. Bones and chest wall: No suspicious bony lesions. No vertebral body compression fractures. No axillary adenopathy. Bilateral supra-clavicular adenopathy is present, measuring 14 mm short axis on the right, as well as 15 mm short axis and 10 mm short axis on the left.. Thyroid gland is within normal limits. Abdomen: Visualized portions of the upper abdomen demonstrate an incompletely visualized multiloculated low-density focus within the right/left hepatic lobe junction anteriorly measuring at least 26 mm. IMPRESSION: 1. Moderate right upper and severe right lower lobe pneumonia. Moderate right parapneumonic effusion. 2. Prominent supraclavicular, right hilar, and mediastinal adenopathy, worrisome for underlying malignant process. 3. Upper esophageal distention with retained intraluminal material, suggestive of an upper esophageal stricture. 4. Incompletely visualized right/left hepatic lobe junction abnormality, which could be further assessed with ultrasound initially, if clinically indicated. Dictated by: Vianey Parsons M.D. on 12/20/2016 at 11:20 Assessment & Plan Pat is a 76-year-old lady with past medical history of gastric ulcer, hypertension, history of CVA, hypothyroidism,HLD, cervical spinal stenosis, diagnosed with COPD 9 months ago was sent from PCP office for progressively worsening dyspnea for suspected pneumonia. acute, active progressive worsening dyspnea, POA, possibly related to worsening Rt sided effusion, suspicious for malignant, pleural fluid drained 12/21 showed exudate, no organisms on culture, prot/glc WNL, unlikely infectious, pt was initially suspected PNA given failure of outpatient abx. tx for COPD. however, pt remained afebrile, PCT very unremarkable. pt only has chronic dry cough, therefore abx was stopped on 12/21 -pt remains stable. -O2 supplement as needed target>95%, good O2sat today on -appreciate input on Friday, pt may require brochoscopic bx given extensive LAD, no pathology yet. -will not obtain TTE given low suspicion for chf Rt sided pleural effusion, multiple LAD on CT, as noted above -awaits cytology chronic dysphagia, POA, previous gastric ulcer in EGD, CT showed upper esophageal distention with retained intraluminal material, suggestive of an upper esophageal stricture, dx malignancy, GERD, schatzki ring. EGD 12/21 performed -appreciate follow up, FU EGD result chronic, stable # History of COPD, duoneb prn # Suspected severe protein kaloric malnutrition due to dysphagia and suspected lung cancer # History of CVA requiring TPA with possible residual dysphagia, continue aspirin, #History of large bleeding gastric ulcer, continue PPI # History of hypertension, Continue home amlodipine # History of hypothyroidism, Continue on Synthroid DNR/DNI,names her daughter as POA dispo: likely 1-2more days home Resuscitation Status: DNR/DNI:Do Not Resuscitate/Intubate Time spent 35min Al Cantrell MD Dec 22, 2016 16:07
--- NOTE | 2016-12-22 16:31 | NUR ---
Social Work: [facility] SW met with patient to obtain signature for [facility]. Patient has signed AMY. SCOTT [place]
[2016-12-23] VITALS (8 sets, daily range): BP systolic 138–167; BP diastolic 66–85; PULSE 74–89; RESP 16; O2SAT 92–95
[2016-12-23] MEDS: 0.9% Sodium Chloride 1,000 ML IV SCH (04:51)
--- NOTE | 2016-12-23 07:33 | NUR ---
uneventful night Pt denies SOB this shift. ambulating to the BR independently w/o difficulty. denies pain or discomfort. tolerating clear liquid diet. Back to Vegetarian diet for breakfast.
--- NOTE | 2016-12-23 08:45 | PCM.PNSURG ---
Subjective Date of Service: Dec 23, 2016 Date of Service: Dec 23, 2016 Visit Information: Subjective: No acute events overnight. Pt s/p egd yesterday (see note for full details). tolerating PO intake. complains mild diarrhea this am. Postop General: No Complaints Objective Vital Sign- Last 8 Hours Date Time Temp Pulse Resp B/P Pulse Ox O2 Delivery O2 Flow Rate FiO2 12/23/16 08:10 89 16 94 Room Air 12/23/16 05:22 36.4 82 16 167/82 95 Room Air Intake and Output- Last 8 Hour 12/23/16 Cumulative From/Thru 07:00 12/20/16 16:30 - 12/23/16 06:56 Intake Total 650 ml 4947 ml Output Total 1350 ml 4025 ml Balance -700 ml 922 ml Intake Oral 650 ml 2400 ml IV Total 2547 ml Output Urine Total 1350 ml 4025 ml # Bowel Movements 0 General: Oriented X3 Neck: Supple Lungs: Crackles Heart: Exam Unremarkable Abdomen: Benign, Soft, Non-tender, Non-distended, Normoactive bowel tones Extremities: Distal Pulses Palpable Result Diagram: 12/21/1661412/21/1615 Assessment & Plan Impression A 76-year-old female. History of gastric ulcer, large hiatal hernia, hypertension, stroke, hypothyroidism, hyperlipidemia, cervical spine stenosis, chronic obstructive pulmonary disease (COPD). Admitted with shortness of breath with a right-sided pneumonia and right-sided parapneumonic effusion. The patient was found to have a CT chest showing possible upper esophageal stenosis and dilatation of the esophagus but final read changed to normal esophagus on 01/2017. Differential diagnosis includes malignancy versus esophagitis, versus Schatzki's ring, versus stricture, versus uncontrolled gastroesophageal reflux disease (GERD). Given the CT of the chest findings concerning that this may be due to an esophageal stricture or possible malignancy. ct chest 12/22/2016- FINDINGS: Image quality: Moderate, no contrast used.. Lungs and pleura: In the right upper lobe and to a lesser degree in the right lower lobe and middle lobe there is increased interstitial markings and the appearance would suggest lymphangitic obstruction or spread of disease. There is slight loss of diameter of the bronchus intermedius. There is loss of diameter of the bronchi going to the right lower lobes and to the right upper lobe. Mediastinum: Heart size is normal. No pericardial effusion. There is prominent adenopathy in the pretracheal retrocaval space, aortopulmonary window , subcarinal area and in the right hilum there is an abnormal amount of soft tissue as well. Without contrast to discriminate vessels from other soft tissue or location of the mass cannot be identified. Thoracic aorta and central pulmonary arteries are normal in size. Esophagus is normal in caliber. No hiatal hernia. Bones and chest wall: No suspicious bony lesions. No vertebral body compression fractures. No axillary or supraclavicular adenopathy by size criteria. Abdomen: Visualized upper abdominal solid organs and bowel loops appear normal in the absence of contrast. There is a multiloculated cystic structure in right lobe of the liver. There is left-sided mild hydronephrosis to be present. IMPRESSION: Malignancy is present as noted by mediastinal adenopathy and right hilar soft tissue prominence. Specific mass cannot be distinguished without the use of contrast to discriminate between lymph nodes and vessels and mass as well as collapsed lung. Prominent increased interstitial markings probably lymphangitic in the upper lobe and perihilar region in the right lobe and middle lobe of the right lung. Small right pleural effusion remains. 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 Otherwise normal upper endoscopy. RECOMMENDATION: Await pathology results. Okay to start clear liquid diet. Advance as tolerated. Recs: 1) Advance po diet as tolerated 2) consider stool studies. 3) await bx results will cont to follow Problems: Resuscitation Status: DNR/DNI:Do Not Resuscitate/Intubate Chris Abdi MD Dec 23, 2016 08:45
--- NOTE | 2016-12-23 12:10 | PCM.PNMED ---
Subjective Date of Service Dec 23, 2016 Subjective no overnight event, pt ambulates okay without dyspnea, await Dr.Parimi dutta today pt request to switch provider as "lack of communication", stated that nobody could explain to her why she was on clear liquid diet after EGD. I explained that it was recommended by GI service, with intent to advance her diet. again explained in details, answered questions about her status and plan. pt still insisted that she wanted to switch provider, therefore switched her care to today Exam Vital Signs Vital Sign - Last Date Time Temp Pulse Resp B/P Pulse Ox O2 Delivery O2 Flow Rate FiO2 12/23/16 09:54 36.5 74 16 156/77 94 Room Air 12/22/16 17:08 4.00 Intake and Output 12/22/16 12/22/16 12/23/16 Cumulative From/Thru 15:00 23:00 07:00 12/20/16 16:30 - 12/23/16 06:56 Intake Total 150 ml 1842 ml 650 ml 4947 ml Output Total 650 ml 1350 ml 4025 ml Balance 150 ml 1192 ml -700 ml 922 ml Intake Oral 900 ml 650 ml 2400 ml IV Total 150 ml 942 ml 2547 ml Output Urine Total 650 ml 1350 ml 4025 ml # Bowel Movements 0 0 Exam cachectic, AAOX3 NAD, comfortably laying down on the bed no JVD, MMM, no LAD RRR, nl s1, s2 no mrg decreased BS on RLF, mild crackles, S,ND,NT,BS+ warm, no edema, pulses 2/2 IVs and Medications Medications Reviewed: Medications were reviewed in detail Lab and Diagnostics Result Diagram: 12/21/1661412/21/16614 X-Rays, CTs and MRIs PROCEDURE: X-RAY CHEST, TWO VIEWS ([id number]) INDICATIONS: PNEUMONIA,CHRONIC OBSTRUCTIVE PULMONARY DISEASE TECHNIQUE: 2 views of the chest were acquired. COMPARISON: [facility], CR, XR CHEST 2VW, 11/15/2016, 9:01. FINDINGS: Surgical changes and devices: None. Lungs and pleura: Stable small right pleural effusion with interstitial pulmonary opacities throughout the right mid and lower lung. Left lung is clear. Hyperinflation consistent with emphysema. Mediastinum: Mediastinal contours are normal. Heart size is normal. Bones and chest wall: No suspicious bony abnormalities. Soft tissues appear unremarkable. IMPRESSION: No significant interval change. Stable right pleural effusion and mid and lower right lung pulmonary opacities. Given persistence of findings recommended a chest CT with contrast. Dictated by: Adam Anderson M.D. on 12/17/2016 at 12:10 PROCEDURE: CT CHEST WITH CONTRAST ([id number]) INDICATIONS: PLEURAL EFFUSION ON RIGHT TECHNIQUE: After the administration of intravenous contrast, 5 mm thick sections acquired from the pulmonary apices to the posterior costophrenic angles. 7 mm thick coronal and sagittal MIP reformats were acquired. For radiation dose reduction , the following was used: automated exposure control, adjustment of mA and/or kV according to patient size. 5 COMPARISON: None. FINDINGS: Image quality: Excellent. Lungs and pleura: A moderate right pleural effusion is present. No pneumothorax. Central and peripheral airways are patent and normal in caliber. There is severe airspace opacification within the right lower lobe, especially involving the superior segment. There is moderate airspace opacification within the right upper lobe. There is moderate emphysema with apical predominance. Mediastinum: Heart size is normal. No pericardial effusion. 20 mm short axis right paratracheal adenopathy is present. 27 mm short axis precarinal adenopathy is present. 14 mm short axis and 27 mm short axis right hilar adenopathy is present. 25 mm short axis subcarinal adenopathy is present. Thoracic aorta and central pulmonary arteries are normal in size. There is moderate fluid filled distention of the upper esophagus, measuring 30 mm transverse, which contains fluid, as well as a dependent high density focus measuring 7 mm. No hiatal hernia. Bones and chest wall: No suspicious bony lesions. No vertebral body compression fractures. No axillary adenopathy. Bilateral supra-clavicular adenopathy is present, measuring 14 mm short axis on the right, as well as 15 mm short axis and 10 mm short axis on the left.. Thyroid gland is within normal limits. Abdomen: Visualized portions of the upper abdomen demonstrate an incompletely visualized multiloculated low-density focus within the right/left hepatic lobe junction anteriorly measuring at least 26 mm. IMPRESSION: 1. Moderate right upper and severe right lower lobe pneumonia. Moderate right parapneumonic effusion. 2. Prominent supraclavicular, right hilar, and mediastinal adenopathy, worrisome for underlying malignant process. 3. Upper esophageal distention with retained intraluminal material, suggestive of an upper esophageal stricture. 4. Incompletely visualized right/left hepatic lobe junction abnormality, which could be further assessed with ultrasound initially, if clinically indicated. Dictated by: Vianey Parsons M.D. on 12/20/2016 at 11:20 Assessment & Plan Pat is a 76-year-old lady with past medical history of gastric ulcer, hypertension, history of CVA, hypothyroidism,HLD, cervical spinal stenosis, diagnosed with COPD 9 months ago was sent from PCP office for progressively worsening dyspnea for suspected pneumonia. acute, active progressive worsening dyspnea, POA, possibly related to worsening Rt sided effusion, suspicious for malignant, pleural fluid drained 12/21 showed exudate, no organisms on culture, prot/glc WNL, unlikely infectious, pt was initially suspected PNA given failure of outpatient abx. tx for COPD. however, pt remained afebrile, PCT very unremarkable. pt only has chronic dry cough, therefore abx was stopped on 12/21 -pt remains stable. doesn't require O2 throughout hospitalization -appreciate input today, pt may require brochoscopic bx given extensive LAD, no pathology yet. -will not obtain TTE given low suspicion for chf Rt sided pleural effusion, multiple LAD on CT, as noted above -awaits cytology chronic dysphagia, POA, previous gastric ulcer in EGD, CT showed upper esophageal distention with retained intraluminal material, suggestive of an upper esophageal stricture, dx malignancy, GERD, schatzki ring. 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 new onset watery diarrhea, developed 12/22-, awaits stool PCR for possible infection given abx exposure in early hospital course. chronic, stable # History of COPD, duoneb prn # Suspected severe protein kaloric malnutrition due to dysphagia and suspected lung cancer # History of CVA requiring TPA with possible residual dysphagia, continue aspirin, #History of large bleeding gastric ulcer, continue PPI # History of hypertension, Continue home amlodipine # History of hypothyroidism, Continue on Synthroid DNR/DNI,names her daughter as POA dispo: pt is medically stable for d/c, awaits pulmonary eval. VTE Mechanical Devices: Venous Foot Pump Resuscitation Status: DNR/DNI:Do Not Resuscitate/Intubate Time spent 35min Al Cantrell MD Dec 23, 2016 12:10
--- NOTE | 2016-12-23 14:24 | NUR ---
Palliative care note D/A: Palliative care referral kindly received today from Dr. Mims. He notes that the patient is a 76 year old female, admitted with a suspicious mass in her lungs.Possible bronch scheduled for 12/24/16. She see's Dr. Teague for pulmonary and Dominique PRASAD for PCP. Referral is for goals of care. Medical team also feels that pt may have mets as well. Pt currently expressing that she does not wish for treatment but would like to have supportive care offered. Dr. Loza is aware. Dr. Mims feels that the pt's needs are not urgent and that pt can be seen on 12/24/16. P: Palliative care to follow. Cindy QUINTANA, CCM
--- NOTE | 2016-12-23 14:37 | NUR ---
NUTRITION ASSESSMENT: ASSESS: 76 YO female admitted for pneumonia vs pleural effusion. Pt with progressive worsening dyspnea prior to admit possible secondary to worsening rt sided effusion, drained on 12/21, suspicious for malignancy. Pt is s/p EGD on 12/22 and may have bronchoscopy on 12/24. Palliative care has been consulted. PMHx: Gastric ulcer, HTN, CVA s/p TPA, hypothyroidism, cervical spinal stenosis, COPD. LABS: Reviewed. Alb 3.9. MEDS: Reviewed. GI: No BM reported at this time. CURRENT WT: 35.4 kg. August 20, 2013: 43.4 kg. Wt Loss:-18.4% BW in ~3.5 years. IBW: 43.6 kg. DIET: Soft. PO 25-50% of meals. EST. NEEDS: 8140-4632 kcals (30-40 kcals/kg BW), 50-65 g protein (1.2-1.5 g/kg IBW) NUTRITION DIAGNOSIS: 1.) Increased nutrient needs related to increased demand for nutrients as evidenced by BMI of 16.3, PO intake 25-50% x 3 days and significant weight loss. NUTRITION INTERVENTION: 1.) Will add ensure BID at 01/13 to encourage increased po intake. MONITOR / EVAL: PO intake, labs, weights, nutritional status, POC. Follow per moderate nutritional risk guidelines.
--- NOTE | 2016-12-23 15:38 | NUR ---
Communication/tests Pleasant, A&O pt. Has denied pain all shift. IVF d/cd d/t increasing BP and pt tolerating orals well. Diet now advanced to HH from soft. Pt was frustrated early in AM d/t "poor communication". Pt was told by MD after eating breakfast that a test was schedule requiring her to be NPO. Pt requested to see Dr Teague re plan of care. Pt seen by Dr Teague, new hospitalist assigned as well. Pt states to be more informed with her plan of care.
[2016-12-24] VITALS (7 sets, daily range): BP systolic 125–156; BP diastolic 72–75; PULSE 74–86; RESP 16; O2SAT 92–94
--- NOTE | 2016-12-24 04:22 | NUR ---
Uneventful Night: pt had an uneventful night, no c/o pain, chest pain or SOB. Pt slept most of the night, pleasant and cooperative with care.
--- NOTE | 2016-12-24 08:28 | NUR ---
Social Work-readiness for discharge: Data:EMR reviewed. Pt is on day 4 of hospitalization for pneumonia per H&P. Pt is not medically stable anticipate 1-2 more days. Pt has been up independent in her room, per RN notes. SW confirmed plan of discharge home no needs with pt. Pt's family to provide transport home. No anticipated discharge needs. SW will continue to follow if needs arise. Assessment:pt who is independent at baseline. Plan:Pt to discharge home when medically stable via POV. No anticipated discharge needs. SW will continue to follow if needs arise. SCOTT العلي
--- NOTE | 2016-12-24 08:57 | CONS ---
[address] [address] CONSULTATION REPORT PATIENT: LUCINA MEJÍA : 1940 MR#: [id number] ADMIT: 12/20/2016 JOB ID: [id number] PULMONARY CONSULTATION NOTE: DATE OF SERVICE: 12/23/2016 REASON FOR CONSULTATION: The patient is a 76-year-old woman with a distant 25 pack-year smoking history, seen in consultation at the request of Dr. Cantrell for evaluation of a lung mass and pleural effusion. HISTORY OF PRESENT ILLNESS: The patient is a 76-year-old woman, who I actually saw in outpatient Pulmonary Clinic once in January 2016 for chronic dyspnea. PFTs at that time showed mild COPD, and I treated the patient for that. We had recommended a chest x-ray, but the patient declined at that time. She was subsequently lost to followup, and called in November requesting a chest x-ray. This showed abnormalities including a right-sided infiltrate and effusion. At this point, I recommended a course of antibiotics, repeat chest x-ray and chest CT a month later. In the meantime, her dyspnea continued to get worse, so her lumber carrier ordered a chest CT instead, which showed a lung mass. She was admitted to the hospital over the weekend and had a thoracentesis initially, and the results of this are still pending. With regards to symptoms, she does have some cough and sputum that is relatively unchanged. Denies hemoptysis. She has lost about 5 pounds over the last few months, but no more. Her shortness of breath has been worse in the last few months compared to previous baseline. Denies any other focal pain, chest pain, joint pain, etc. She does have some musculoskeletal- sounding back pain. PAST MEDICAL HISTORY: Gastric ulcer, hypertension, hyperlipidemia, cervical spinal stenosis, mild COPD, FEV1 81%. SOCIAL HISTORY: Ex-smoker, who quit smoking 30 years ago, and has a 25 pack year prior smoking history. FAMILY HISTORY: No history of lung cancer in the family. REVIEW OF SYSTEMS: Positive as mentioned above in HPI. She denies any blurred vision, headaches, chest pain, joint pain, skin rashes, nausea, vomiting, hematemesis, hematochezia, etc. Denies fevers, chills, sweats. Has 5-pound weight loss. PHYSICAL EXAMINATION: Vital signs reviewed. T-max 36.4, pulse 74, respirations 16, BP 161/85, sats 92% on room air. General: Thin woman sitting up in bed. Alert, oriented. In no distress. Neck: No cervical lymphadenopathy. HEENT: Oral mucosa is moist. No ulcers or thrush. Chest: Clear to auscultation. Decreased breath sounds at the right lung base. Heart: Regular rate, rhythm. No murmurs. Abdomen: Soft, nontender. Extremities: No cyanosis, clubbing, edema. Skin: No rashes. LABORATORIES: Reviewed. WBC 6.3, hemoglobin 12.2, platelets 285. Chemistry also reviewed and within normal limits. Coags show INR of 0.96. Cultures no growth. IMAGING: CT chest reviewed and shows right hilar mass that is compressing the right lower lobe airways causing atelectasis. There is also small right pleural effusion. She had a thoracentesis on December 21, and the cytology on this is pending. Total protein was 4. It had 74% lymphocytes. LDH was not checked. ASSESSMENT AND RECOMMENDATIONS: 1. Right hilar lung mass with right pleural effusion. Highly suspicious for malignancy. 2. Mild chronic obstructive pulmonary disease. RECOMMENDATIONS: This is a 76-year-old woman with a distant prior smoking history, has what appears to be advanced staged primary lung cancer. She had a thoracentesis done on Friday, and I have made multiple phone calls today to pathology requesting a report on this. I am hopeful that they will give me some information by the end of the day. If we do have a diagnosis on the pleural fluid, then she does not need additional workup, but if not, then I plan on proceeding with bronchoscopy with biopsies tomorrow. When I spoke to the patient, she indicated that she does not have any interest in getting treatment for this condition--specifically chemotherapy, radiation or surgery. She says quality of life is most important to her and she wants to be DNR/DNI, and consider no therapies that would cause any discomfort or significant symptoms. I spoke to her about tumor marker directed therapies, and she seemed to think these were acceptable. For this reason, she agreed with proceeding with a bronchoscopy. I am hopeful that we can get an early preliminary result if needed on the bronch and have Oncology speak to her before she goes home so she has a definitive plan. She expressed interest in speaking with Palliative Care, and I informed Dr. Mims, her current hospitalist, regarding all of the above. At present, she is n.p.o. at midnight and we will make a definitive decision based on response from cytology.
--- NOTE | 2016-12-24 11:26 | PCM.PNMED ---
Subjective Date of Service Dec 24, 2016 Subjective GASTROENTEROLOGY PROGRESS NOTE: Attending Physician: Chris Abdi MD Resident Physician: Eri Fletcher DO No acute events overnight. Patient is doing well this morning and without complaint. She states that her diarrhea has improved. However, she notes that she has not eaten anything in anticipation for possible bronchoscopy today. So it is hard to say if this has truly improved. She denies abdominal pain, nausea , vomiting, fever, chills, dizziness, chest pain, and shortness of breath. Exam Vital Signs Vital Sign - Last Date Time Temp Pulse Resp B/P Pulse Ox O2 Delivery O2 Flow Rate FiO2 12/24/16 09:21 36.6 76 16 125/75 94 Room Air 12/22/16 17:08 4.00 Intake and Output 12/23/16 12/23/16 12/24/16 Cumulative From/Thru 15:00 23:00 07:00 12/20/16 16:30 - 12/24/16 05:42 Intake Total 935 ml 1000 ml 250 ml 7132 ml Output Total 800 ml 1200 ml 6025 ml Balance 935 ml 200 ml -950 ml 1107 ml Intake Oral 1000 ml 250 ml 3650 ml IV Total 935 ml 3482 ml Output Urine Total 800 ml 1200 ml 6025 ml # Bowel Movements 1 1 Exam General: Petite, elderly woman lying in bed. Appears comfortable and in no acute distress. HEENT: Atraumatic, no scleral icterus. Mucous membranes moist/pink Pulmonary: Symmetric chest rise w/equal air entry bilaterally. Decreased breath sounds and crackles at right lung base. Otherwise clear Cardiovascular: Regular rate and rhythm with no murmurs Abdomen: Soft, non-denstended, non-tender, no masses. Hypoactive bowel tones Extremities: No edema Neurologic: AOx3. No focal deficit. Normal speech IVs and Medications Medications Reviewed: Medications were reviewed in detail Lab and Diagnostics Microbiology 12/20/16 Blood Culture - No growth at 2 days 12/23/16 Stool PCR - Negative . Result Diagram: 12/21/1661412/21/16614 X-Rays, CTs and MRIs 12/21/16 - US GUIDED THORACENTESIS INDICATIONS: 76 year-old female with basal right pleural effusion. IMPRESSION: Successful ultrasound-guided diagnostic thoracentesis. Approved by: Amari Kidd M.D. on 12/21/2016 at 19:15 12/20/16 - X-RAY CHEST ONE VIEW IMPRESSION: 1. No complication following thoracentesis. 2. No change in right pleural-parenchymal densities. Approved by: Vianey Parsons M.D. on 12/20/2016 at 18:52 12/21/16 - X-RAY CHEST ONE VIEW IMPRESSION: 1. Small right basal pleural effusion has slightly decreased status post thoracentesis. No pneumothorax. 2. Persistent right midlung pneumonia. Approved by: Amari Kidd M.D. on 12/21/2016 at 18:44 12/22/16 - CT CHEST WITHOUT CONTRAST IMPRESSION: -Malignancy is present as noted by mediastinal adenopathy and right hilar soft tissue prominence. Specific mass cannot be distinguished without the use of contrast to discriminate between lymph nodes and vessels and mass as well as collapsed lung. -Prominent increased interstitial markings probably lymphangitic in the upper lobe and perihilar region in the right lobe and middle lobe of the right lung. Small right pleural effusion remains. Approved by: Reece Radford M.D. on 12/22/2016 at 10:06 . Assessment & Plan Natalie Snell is a very pleasant 76-year-old woman with a history of gastric ulcer, large hiatal hernia, hypertension, stroke, hypothyroidism, hyperlipidemia, cervical spine stenosis, and COPD who presented with progressive dyspnea. Admitted with a right-sided pleural effusion suspicious for malignancy and possible pneumonia. GI consulted for further evaluation of dysphagia and diarrhea. Patient is now s/p EGD as well as thoracentesis and Pulmonology is also following. Chronic dysphagia in a patient with a previous gastric ulcer status post EGD with biopsies still pending. - CT showed upper esophageal distention with retained intraluminal material, suggestive of an upper esophageal stricture, dx malignancy, GERD, schatzki ring. 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 New onset diarrhea of uncertain etiology. Improving - Unlikely infectious as patient is afebrile with normal wbc and stool studies negative. RECOMMENDATIONS: -Advance diet as tolerated -Await biopsy results with outpatient followup -If diarrhea continues to improve and patient tolerating diet, then stable for discharge from a GI standpoint Additional problems managed by primary Hospitalist and/or Pulmonology: -Right sided pleural effusion, suspicious for malignancy -History of COPD, duoneb prn -Suspected severe protein kaloric malnutrition due to dysphagia and suspected lung cancer -History of CVA requiring TPA with possible residual dysphagia, continue aspirin , -History of large bleeding gastric ulcer, continue PPI -History of hypertension, Continue home amlodipine -History of hypothyroidism, Continue on Synthroid . Pain Evaluation: Adequate Pain Control VTE Mechanical Devices: Venous Foot Pump Resuscitation Status: DNR/DNI:Do Not Resuscitate/Intubate Eri Fletcher DO Dec 24, 2016 10:56
--- NOTE | 2016-12-24 11:26 | PCM.CONPAL ---
Date of Service Dec 24, 2016 Date of Hospital Admission: Dec 20, 2016 at 16:07 Date of Palliative Consult: Dec 24, 2016 Requesting Provider: Alejandro Mims MD Reason Palliative Care Consult: Goals of Care Discussion Reason for Consultation Palliative care referral kindly received today from Dr. Mims. He notes that the patient is a 76 year old female, admitted with a suspicious mass in her lungs.Possible bronch scheduled for 12/24/16. She see's Dr. Teague for pulmonary and Dominique PRASAD for PCP. Referral is for goals of care. Medical team also feels that pt may have mets as well. Pt currently expressing that she does not wish for treatment but would like to have supportive care offered. Dr. Loza is aware. Dr. Mims feels that the pt's needs are not urgent and that pt can be seen on 12/24/16. Hospital Unit @time of consult: Medical/Pediatric Care Additional Information Room #9973 Palliative Care Recommendation Summary of palliative recommendations: In speaking briefly with the patient today she says that she is awaiting the results of her pleuracentesis. She states that she is willing to have a bronchoscopy with biopsy performed should this be indicated. She also wanted to talk to an oncologist about the findings and possible outcomes/treatments before meeting with Palliative Care. Plan: 1. We will be in touch with the patient as more information arises, and when we have a more clear picture of her diagnosis and prognosis. If she is willing, we will meet with her and her daughter. 2. Palliative Care will not formally sign off, but will not round on patient. We ask Attending team to re-contact us when pt is ready for a discussion. Thank you. Problems: Resuscitation Status Resuscitation Status: DNR/DNI:Do Not Resuscitate/Intubate Pt History History of Present Illness Pat is a 76-year-old lady with past medical history of dysphasia, gastric ulcer , hypertension, history of CVA, hypothyroidism, HLD, cervical spinal stenosis, diagnosed with COPD 9 months ago was sent from PCP office for progressively worsening dyspnea for suspected pneumonia. CT scan of the chest demonstrated: Moderate right upper and severe right lower lobe pneumonia. Moderate right parapneumonic effusion. Prominent supraclavicular, right hilar, and mediastinal adenopathy, worrisome for underlying malignant process. Pleurocentesis was performed with cytological evaluation pending. Past Medical History Significant PMH Noted: dysphasia gastric ulcer hypertension history of CVA hypothyroidism HLD cervical spinal stenosis COPD Allergy Allergies Reviewed: Yes Medications Scheduled Amlodipine (Amlodipine) 10 Mg Tablet 10 MG PO QPM Aspirin (Aspirin) 81 Mg Tablet 81 MG PO DAILY Levothyroxine (Levothyroxine) 50 Mcg Tablet 50 MCG PO DAILY Losartan Potassium (Losartan Potassium) 100 Mg Tablet 100 MG PO QPM Montelukast (Montelukast) 10 Mg Tablet 10 MG PO HS Red Yeast Rice (Red Yeast Rice) 600 Mg Capsule 600 MG PO BID Time spent Total time [30] minutes; >50% face to face with patient, providing counselling regarding plans and recommendations, and in care coordination with his/her medical teams. Attending Statement Dr. Loza was physically present and available throughout this discussion/ counseling session with patient and agrees with the documentation provided by resident physician in note above. Raghavendra Mcnulty DO Dec 24, 2016 11:26 Nedra Loza MD Dec 24, 2016 11:35 with the patient/the patients family/the surrogate decision maker. Raghavendra Mcnulty DO Dec 24, 2016 11:26
--- NOTE | 2016-12-24 12:13 | PCM.PNMED ---
Subjective Date of Service Dec 24, 2016 Subjective Patient seen and examined. No complaints. Vitals noted. Exam Vital Signs Vital Sign - Last Date Time Temp Pulse Resp B/P Pulse Ox O2 Delivery O2 Flow Rate FiO2 12/24/16 09:21 36.6 76 16 125/75 94 Room Air 12/22/16 17:08 4.00 Intake and Output 12/23/16 12/23/16 12/24/16 Cumulative From/Thru 15:00 23:00 07:00 12/20/16 16:30 - 12/24/16 05:42 Intake Total 935 ml 1000 ml 250 ml 7132 ml Output Total 800 ml 1200 ml 6025 ml Balance 935 ml 200 ml -950 ml 1107 ml Intake Oral 1000 ml 250 ml 3650 ml IV Total 935 ml 3482 ml Output Urine Total 800 ml 1200 ml 6025 ml # Bowel Movements 1 1 Exam cachectic, AAOX3 NAD, comfortably laying down on the bed no JVD, MMM, no LAD RRR, nl s1, s2 no mrg decreased BS on RLF, mild crackles, S,ND,NT,BS+ warm, no edema, pulses 2/2 Lab and Diagnostics Result Diagram: 12/21/16 0615 12/21/16 0615 X-Rays, CTs and MRIs 12/21/16 - US GUIDED THORACENTESIS INDICATIONS: 76 year-old female with basal right pleural effusion. IMPRESSION: Successful ultrasound-guided diagnostic thoracentesis. Approved by: Amari Kidd M.D. on 12/21/2016 at 19:15 12/20/16 - X-RAY CHEST ONE VIEW IMPRESSION: 1. No complication following thoracentesis. 2. No change in right pleural-parenchymal densities. Approved by: Vianey Parsons M.D. on 12/20/2016 at 18:52 12/21/16 - X-RAY CHEST ONE VIEW IMPRESSION: 1. Small right basal pleural effusion has slightly decreased status post thoracentesis. No pneumothorax. 2. Persistent right midlung pneumonia. Approved by: Amari Kidd M.D. on 12/21/2016 at 18:44 12/22/16 - CT CHEST WITHOUT CONTRAST IMPRESSION: -Malignancy is present as noted by mediastinal adenopathy and right hilar soft tissue prominence. Specific mass cannot be distinguished without the use of contrast to discriminate between lymph nodes and vessels and mass as well as collapsed lung. -Prominent increased interstitial markings probably lymphangitic in the upper lobe and perihilar region in the right lobe and middle lobe of the right lung. Small right pleural effusion remains. Approved by: Reece Radford M.D. on 12/22/2016 at 10:06 . Assessment & Plan Pat is a 76-year-old lady with past medical history of gastric ulcer, hypertension, history of CVA, hypothyroidism,HLD, cervical spinal stenosis, diagnosed with COPD 9 months ago was sent from PCP office for progressively worsening dyspnea for suspected pneumonia. acute, active progressive worsening dyspnea, POA, possibly related to worsening Rt sided effusion, suspicious for malignant, pleural fluid drained 12/21 showed exudate, no organisms on culture, prot/glc WNL, unlikely infectious, pt was initially suspected PNA given failure of outpatient abx. tx for COPD. however, pt remained afebrile, PCT very unremarkable. pt only has chronic dry cough, therefore abx was stopped on 12/21 -pt remains stable. doesn't require O2 throughout hospitalization -appreciate input, pt may require brochoscopic , pending path results -will not obtain TTE given low suspicion for chf Rt sided pleural effusion, multiple LAD on CT, as noted above -awaits cytology chronic dysphagia, POA, previous gastric ulcer in EGD, CT showed upper esophageal distention with retained intraluminal material, suggestive of an upper esophageal stricture, dx malignancy, GERD, schatzki ring. 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 new onset watery diarrhea, developed 12/22-, awaits stool PCR for possible infection given abx exposure in early hospital course. chronic, stable # History of COPD, duoneb prn # Suspected severe protein kaloric malnutrition due to dysphagia and suspected lung cancer # History of CVA requiring TPA with possible residual dysphagia, continue aspirin, #History of large bleeding gastric ulcer, continue PPI # History of hypertension, Continue home amlodipine # History of hypothyroidism, Continue on Synthroid DNR/DNI,names her daughter as POA Pain Evaluation: Adequate Pain Control VTE Mechanical Devices: Venous Foot Pump Resuscitation Status: DNR/DNI:Do Not Resuscitate/Intubate Time spent 35 mins Alejandro Mims MD Dec 24, 2016 12:13
--- NOTE | 2016-12-24 14:12 | PROG NOTE ---
[address] [address] PROGRESS NOTE PATIENT: LUCINA MEJÍA : 1940 MR#: [id number] ADMIT: 12/20/2016 JOB ID: [id number] DATE: 12/24/2016 PULMONARY PROGRESS NOTE: The patient is a 76-year-old woman seen in followup for right lung mass with pleural effusion suspicious for primary lung cancer. INTERVAL HISTORY: No change in her symptoms overnight. We do have preliminary results on the pleural fluid cytology which are discussed below. REVIEW OF SYSTEMS: Negative for fever, chills, sweats, chest pain. PHYSICAL EXAMINATION: Vital signs reviewed. She is afebrile. General: Thin woman sitting in bed, breathing comfortably. Chest is clear to auscultation. ASSESSMENT AND RECOMMENDATIONS: 1. Right hilar lung mass causing atelectasis of the lower lobe. 2. Malignant right pleural effusion. 3. Mild COPD. This 76-year-old woman with distant prior smoking history has a right hilar mass causing atelectasis of the right lower lobe and also a pleural effusion for which she underwent a thoracentesis on Friday. I spoke with the pathologist today at 1 p.m. and received a preliminary result on the pleural fluid. He said there were clearly malignant cells present in the fluid with mucin suggesting adenocarcinoma, but he would need to do additional testing to confirm this. I also asked if they would be able to run tumor marker studies for EGFR, alk, PD-L1 and the pathologist, Dr. Bill, was not completely certain but thought they might be able to do that. The patient was tentatively on the schedule to do a bronchoscopy today at 2 p.m., but I knew that she was reluctant to proceed if we got a diagnosis on pleural fluid. When I spoke with her and explained all of the above, her preference was to go home today, and come back as an outpatient mid week next week to see a medical oncologist to discuss options. As before, she is really not interested in surgery, radiation, or chemotherapy but was willing to consider targeted immunotherapy since it was essentially a tablet a day. She seemed very clear and understood risks and benefits of her decision. She also felt that her priority was quality of life and being able to stay home with minimal symptoms for as much time as possible. She was not interested in prolonging life with therapies listed above and felt quite comfortable with her decision. I spoke with Dr. Mims and recommended that she was okay to be discharged from a pulmonary standpoint. The patient understands that she will receive a phone call from me as soon as I have final results. I also made a call to the Medical Oncology office and left a message with the coordinator for lung cancer, requesting an expedited appointment for this patient mid week next week so that final results would be available and could be discussed.
--- NOTE | 2016-12-24 15:15 | PCM.DIMED ---
Discharge Instructions Date of Service Dec 24, 2016 Dates of Hospitalization Dec 20, 2016 at 16:07 Discharge Diagnosis Discharge Diagnosis Lung cancer Diet Discharge Diet: No restrictions Activity Discharge Activity: No restrictions Call your provider Call your provider for: Shortness of breath, Chest pain Patient Instructions Follow-up plan Medical oncology next week. Follow-up Provider: Arielle Teague MD Follow-up with PCP in: 1 week Alejandro Mims MD Dec 24, 2016 15:15
--- NOTE | 2016-12-24 15:50 | PCM.DC.MED ---
Discharge Summary Date of Service Dec 24, 2016 Dates of Hospitalization Date of Hospital Admission Dec 20, 2016 at 16:07 Date of Discharge: Dec 24, 2016 Providers: Admitting Physician: Shankar Escobar MD Primary Care Physician: Dominique Bartlett Attending Physician: Alejandro Mims MD Diagnosis at Time of Discharge Diagnosis at Time of Discharge Lung cancer Procedures XRay, CTs & MRIs 12/21/16 - US GUIDED THORACENTESIS INDICATIONS: 76 year-old female with basal right pleural effusion. IMPRESSION: Successful ultrasound-guided diagnostic thoracentesis. Approved by: Amari Kidd M.D. on 12/21/2016 at 19:15 12/20/16 - X-RAY CHEST ONE VIEW IMPRESSION: 1. No complication following thoracentesis. 2. No change in right pleural-parenchymal densities. Approved by: Vianey Parsons M.D. on 12/20/2016 at 18:52 12/21/16 - X-RAY CHEST ONE VIEW IMPRESSION: 1. Small right basal pleural effusion has slightly decreased status post thoracentesis. No pneumothorax. 2. Persistent right midlung pneumonia. Approved by: Amari Kidd M.D. on 12/21/2016 at 18:44 12/22/16 - CT CHEST WITHOUT CONTRAST IMPRESSION: -Malignancy is present as noted by mediastinal adenopathy and right hilar soft tissue prominence. Specific mass cannot be distinguished without the use of contrast to discriminate between lymph nodes and vessels and mass as well as collapsed lung. -Prominent increased interstitial markings probably lymphangitic in the upper lobe and perihilar region in the right lobe and middle lobe of the right lung. Small right pleural effusion remains. Approved by: Reece Radford M.D. on 12/22/2016 at 10:06 . Brief History Natalie is a 76-year-old lady with past medical history of dysphasia, gastric ulcer , hypertension, history of CVA, hypothyroidism, HLD, cervical spinal stenosis, diagnosed with COPD 9 months ago was sent from PCP office for progressively worsening dyspnea for suspected pneumonia. CT scan of the chest demonstrated: Moderate right upper and severe right lower lobe pneumonia/mass. Moderate right parapneumonic effusion. Prominent supraclavicular, right hilar, and mediastinal adenopathy, worrisome for underlying malignant process. Pleurocentesis was performed Hospital Course Pat is a 76-year-old lady with past medical history of gastric ulcer, hypertension, history of CVA, hypothyroidism,HLD, cervical spinal stenosis, diagnosed with COPD 9 months ago was sent from PCP office for progressively worsening dyspnea for suspected pneumonia. acute, active progressive worsening dyspnea, POA, possibly related to worsening Rt sided effusion, suspicious for malignant, pleural fluid drained 12/21 showed exudate, no organisms on culture, prot/glc WNL, unlikely infectious, pt was initially suspected PNA given failure of outpatient abx. tx for COPD. however, pt remained afebrile, PCT very unremarkable. pt only has chronic dry cough, therefore abx was stopped on 12/21 -pt remains stable. doesn't require O2 throughout hospitalization -prelim cytology results as per Dr. Teague indicated possible adenocarcinoma , path to try running markers, if not , may need bronch outpatient -appreciate input, Patient to follow up outpatient with oncology next week, along with Dr. Teague Rt sided pleural effusion, multiple LAD on CT, as noted above chronic dysphagia, POA, previous gastric ulcer in EGD, CT showed upper esophageal distention with retained intraluminal material, suggestive of an upper esophageal stricture, dx malignancy, GERD, schatzki ring. 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 new onset watery diarrhea, developed 12/22-, awaits stool PCR for possible infection given abx exposure in early hospital course. chronic, stable # History of COPD # Suspected severe protein kaloric malnutrition due to dysphagia and suspected lung cancer # History of CVA requiring TPA with possible residual dysphagia, continue aspirin, #History of large bleeding gastric ulcer, continue PPI # History of hypertension, Continue home amlodipine # History of hypothyroidism, Continue on Synthroid DNR/DNI,names her daughter as POA Exam Vital Signs (Last) Date Time Temp Pulse Resp B/P Pulse Ox O2 Delivery O2 Flow Rate FiO2 12/24/16 09:21 36.6 76 16 125/75 94 Room Air 12/22/16 17:08 4.00 Test 12/20/16 17:10 12/20/16 17:20 12/20/16 17:38 12/21/16 06:15 Erythrocyte Sedimentation Rate 22mm/hr (0-40) Hemoglobin A1c 5.4% (4.8-5.6) Magnesium Level 2.1mg/dL (1.6-2.6) Total Bilirubin 0.5mg/dL (0.0-1.2) Aspartate Amino Transf (AST/SGOT) 18U/L (0-50) Alanine Aminotransferase (ALT/SGPT) 16U/L (0-32) Alkaline Phosphatase 76U/L (25-165) Troponin T < 0.010ug/L (0.0-0.011) Pro-B-Type Natriuretic Peptide 135.1pg/mL (0-738) Total Protein 7.3g/dL (6.4-8.4) Albumin 3.9g/dL (3.4-5.0) Procalcitonin 0.04ng/mL (0.00-0.08) Hold Garcia Top Tube Received (Received) Urine Color Yellow (YELLOW) Urine Appearance Clear (CLEAR,HAZY) Urine pH 5.0 (5.0-8.0) Urine Specific [place] 1.005 (1.003-1.035) Urine Protein Negativemg/dL (NEG,TRACE) Urine Glucose (UA) Negativemg/dL (NEGATIVE) Urine Ketones Tracemg/dL (NEGATIVE) Urine Occult Blood Negative (NEGATIVE) Urine Nitrite Negative (NEGATIVE) Urine Bilirubin Negative (NEGATIVE) Urine Urobilinogen Normalmg/dL (NORMAL) Urine Leukocyte Esterase Negative (NEGATIVE) Urine RBC 0-2/hpf (0-2) Urine WBC 0-5/hpf (0-5) Urine Epithelial Cells None/hpf (NONE-MOD) Urine Crystals None seen (NONE SEEN) Urine Bacteria None/hpf (NONE-FEW) Urine Hyaline Casts None/lpf (NONE) Urine Granular Casts None seen (NONE SEEN) Urine Waxy Casts None seen (NONE SEEN) Urine Red Blood Cell Casts None seen (NONE SEEN) Urine White Blood Cell Casts None seen (NONE SEEN) Urine Mucus None seen (None Seen) Urine Trichomonas None seen (NONE SEEN) Urine Yeast None (NONE SEEN) Urinalysis Comment None Urine Culture Reflexed Not indicated White Blood Count 6.3th/mm3 (3.8-10.1) Red Blood Count 4.15mil/mm3 (3.90-5.20) Hemoglobin 12.2g/dL (12.0-15.6) Hematocrit 36.2% (35.0-46.0) Mean Corpuscular Volume 87.2fL (81-100) Mean Corpuscular Hemoglobin 29.4pg (27.0-35.0) Mean Corpuscular Hemoglobin Concent 33.7% (32.0-37.0) Red Cell Distribution Width 12.2% (12.3-15.4) Platelet Count 285bil/L (150-400) Neutrophils (%) (Auto) 63.4% (40-74) Lymphocytes (%) (Auto) 8.9% (14-46) Monocytes (%) (Auto) 21.2% (4-12) Eosinophils (%) (Auto) 5.7% (0-5) Basophils (%) (Auto) 0.6% (0-3) Prothrombin Time 10.3sec (8.1-12.5) Prothromb Time International Ratio 0.96ratio Activated Partial Thromboplast Time 29.5sec (22.8-33.0) Sodium Level 138mEq/L (134-144) Potassium Level 3.6mEq/L (3.5-5.2) Chloride Level 103mEq/L (97-108) Carbon Dioxide Level 20mmol/L (18-29) Blood Urea Nitrogen 5mg/dL (8-27) Creatinine 0.49mg/dL (0.57-1.00) Estimat Glomerular Filtration Rate 175mL/min (>59) Glucose Level 86mg/dL (60-99) Calcium Level 8.3mg/dL (8.5-10.1) Test 12/21/16 21:00 12/22/16 07:42 Body Fluid Source Pleural fluid Body Fluid Color Straw (Clear) Body Fluid Appearance Clear Body Fluid pH 7.6 (Not Estab.) Body Fluid WBC 1140/mm3 Body Fluid RBC 1000/mm3 Body Fluid Polynuclear WBCs 7% Body Fluid Lymphocytes 74% Body Fluid Monocytes 18% Body Fluid Eosinophils 0% Body Fluid Basophils 0% Body Fluid Total Protein 4.0g/dL Body Fluid Albumin 2.6g/dL (.) Pleural Fluid Glucose 90mg/dL Lactate Dehydrogenase 146U/L (100-190) Discharge Medications Discharge Medications Amlodipine (Amlodipine) 10 Mg Tablet 10 MG PO QPM (Reported) Aspirin (Aspirin) 81 Mg Tablet 81 MG PO DAILY (Reported) Levothyroxine (Levothyroxine) 50 Mcg Tablet 50 MCG PO DAILY (Reported) Losartan Potassium (Losartan Potassium) 100 Mg Tablet 100 MG PO QPM (Reported) Montelukast (Montelukast) 10 Mg Tablet 10 MG PO HS (Reported) Red Yeast Rice (Red Yeast Rice) 600 Mg Capsule 600 MG PO BID (Reported) Followup Plan Follow-up plan Medical oncology next week. Discharge Diet: No restrictions Discharge Activity: No restrictions Follow-up Provider: Arielle Teague MD Follow-up with PCP in: 1 week Time spent 35 mins Alejandro Mims MD Dec 24, 2016 15:50
--- NOTE | 2016-12-24 15:52 | NUR ---
Social Work-discharge: Data:EMR reviewed. Pt is on day 4 of hospitalization for pneumonia per H&P. Pt is medically stable for discharge. Pt has been up independent in her room, per RN notes. SW confirmed plan of discharge home no needs with pt. Pt's family to provide transport home. No anticipated discharge needs. All updated and agreeable to plan. Assessment:pt who is independent at baseline. Plan:Pt to discharge home today via POV. No anticipated discharge needs. All updated and agreeable to plan. SCOTT العلي
--- NOTE | 2016-12-24 16:53 | NUR ---
Discharge Pt discharged to home. Ambulatory off unit, accompanied by daughter and RN. All belongings sent with pt. Discharge instructions given and explained. Pt vocalizes understanding. Instructed to schedule appt with oncology and follow up with Dr. Teague.
--- NOTE | 2016-12-24 17:16 | PATH ---
SURGICAL PATHOLOGY Attending Physician:Chris Abdi MD CASE STATUS: Signed Out PATIENT NAME: LUCINA MEJÍA PID: [id number] : 1940 DATE COLLECTED:12/22/2016 00:00 SPECIMEN: 1: Esophagus, Biopsy 2: Esophagus, Biopsy CLINICAL HISTORY: 1). MID ESOPHAGUS BIOPSY 2). DISTAL ESOPHAGUS BIOPSY FINAL DIAGNOSIS: 1. Mid Esophagus, Biopsy: Squamous epithelium with no diagnostic abnormality. Intraepithelial eosinophils are not increased. Negative for dysplasia or malignancy. 2. Distal Esophagus, Biopsy: Squamous epithelium with chronic inflammation. Intraepithelial eosinophils are not increased. Negative for dysplasia or malignancy. ICD10: R13.10 GROSS DESCRIPTION: The specimen is received in two formalin filled containers labeled with the patient's name. 1). The specimen is labeled "mid esophagus" and consists of 2 tiny portions of tissue which aggregate to 0.1 x 0.1 x 0.1 CM. The specimen is entirely submitted in cassette 1A. 2). The specimen is labeled "distal esophagus" and consists of 2 portions of tissue which aggregate to 0.2 x 0.2 x 0.1 CM. The specimen is entirely submitted in cassettes 2A. 12/23/2016DC ICD-9 CODES: CPT CODES: 1: 19660 2: 76024 Electronically Signed Out Anibal Bill MD, Ph.D. [facility] Pathology [facility] [address], [place] [address] Technical component performed at [facility], [address] [place] [address] Ave[address], [place], [address]
--- NOTE | 2016-12-27 11:17 | PATH ---
SURGICAL PATHOLOGY Attending Physician:MARIBELL Marin CASE STATUS: Signed Out PATIENT NAME: LUCINA MEJÍA PID: [id number] : 1940 DATE COLLECTED:12/21/2016 00:00 SPECIMEN: Pleural Fluid CLINICAL HISTORY: Pleural Fluid ICD-10 code not given FINAL DIAGNOSIS: Pleural Fluid: Positive for malignant cells consistent with lung primary adenocarcinoma, please see comment. ICD10: C34.90 J91.0 NOTE: Cytospin and cell block sections show groups of tightly cohesive cells with large and bizarre nuclei with a moderate amount of cytoplasm. Some cells show cytoplasmic mucin. A limited panel of immunohistochemistry is performed and the atypical cells are positive for TTF-1, napsin and cytokeratin 7 protein expression, and are negative for PAX-8, GATA3 and CDX2 protein expression. Given the history of a lung mass and pleural effusion, this morphology and immunophenotype are consistent with adenocarcinoma of lung origin. Additionally, the carcinoma cells are variably positive for keratin 20 and villin protein expression, suggestive of enteric differentiation, a finding not uncommon in lung primary adenocarcinoma. Studies for EGFR, ALK-1, Ros-1 and PDL-1 are pending and results will be issued in an addendum. As part of routine nurse quality, Dr. Sorensen has reviewed the cytospin and cell block sections and agrees with the diagnosis of adenocarcinoma. GROSS DESCRIPTION: Received fresh on 12/23/2016 is approximately 10 cc of clear yellow fluid. Prepared are two cell blocks and two Cytospin slides. Vo MICRO DESCRIPTION: To further characterize the cells of interest, a limited panel of immunohistochemistry was performed, each with an appropriately positive control. The cells of interest are positive for keratin 7, TTF-1, Napsin-A, keratin 20 (variable) and villin (variable); the cells of interest are negative for GATA3, PAX-8 and CDX2 protein expression. Overall this immunoprofile is consistent with lung primary adenocarcinoma with enteric differentiation. * This test was developed and its performance characteristics determined by [facility]. It has not been cleared or approved by the [place]. Food and Drug Administration. The FDA has determined that such clearance or approval is not necessary. This test is used for clinical purposes. It should not be regarded as investigational or for research. ICD-9 CODES: CPT CODES: 1: 32163, 90087, 07839, 45597, 30141, 53508, 25575, 77354, 68363, 33480, 93839 Electronically Signed Out Anibal Bill MD, Ph.D. [facility] [address], [place] [address] Technical component performed at [facility], [address], [place], [address]
== END 2016-12-24 16:38 | disposition home or self-care (01) | DRG 180 ==
LOC: MPC 16:07
PROVIDERS: ADMIT Internal Medicine; ATTEND Internal Medicine
PROC: 0W993ZX Drainage of Right Pleural Cavity, Percutaneous Approach, Diagnostic (ICD-10-PCS; 2016-12-20)
PROC: 0DB28ZX Excision of Middle Esophagus, Via Natural or Artificial Opening Endoscopic, Diagnostic (ICD-10-PCS; 2016-12-22)
PROC: 0DB38ZX Excision of Lower Esophagus, Via Natural or Artificial Opening Endoscopic, Diagnostic (ICD-10-PCS; principal; 2016-12-22 09:30)
DX: C34.91 Malignant neoplasm of unspecified part of right bronchus or lung (principal); E43 Unspecified severe protein-calorie malnutrition; Z68.1 Body mass index [BMI] 19.9 or less, adult; N13.30 Unspecified hydronephrosis; J91.0 Malignant pleural effusion; I10 Essential (primary) hypertension; R13.10 Dysphagia, unspecified; J44.9 Chronic obstructive pulmonary disease, unspecified; E78.5 Hyperlipidemia, unspecified; E03.9 Hypothyroidism, unspecified; N88.2 Stricture and stenosis of cervix uteri; Z66 Do not resuscitate; Z86.73 Personal history of transient ischemic attack (TIA), and cerebral infarction without residual deficits; Z79.51 Long term (current) use of inhaled steroids; Z79.82 Long term (current) use of aspirin